=== PATIENT | female | born 1935 | race Caucasian/White ===

== ENCOUNTER 2017-12-05 09:38 | Outpatient (RCR) | payer MEDICARE, OTHER, SELFPAY ==
--- NOTE | 2017-12-05 11:47 | PT.OTN ---
Current Diagnoses Pain in right hip (12/05/17) Transition note: On November 27, 2017 our therapy services consisting of Speech, Occupational, and Physical Therapy transitioned from the [employer] electronic documentation system to a new [employer] electronic documentation system.?? All documentation prior to November 27 can be found under [employer] saved data. From November 27 forward all medical record documentation will be in [employer] 6.1.
--- NOTE | 2017-12-05 15:19 | PT.OTN ---
Current Diagnoses Pain in right hip (12/05/17) Physical Therapy Treatment Note PT-OP-A Visit Information Start: 12/05/17 07:28 Freq: Status: Active Protocol: Document 12/05/17 15:03 [facility] (Rec: 12/05/17 15:19 [facility] [email or web address]) Out-Patient Physical Therapy Visit Information Visit Information Visit Type Treatment Note Visit Start Time 10:30 Visit Stop Time 11:15 Total Visit Minutes 45 Visit Number 5 Number of ROOM SERVICE SUPERVISOR Visits 0 PT-OP-C Subjective Start: 12/05/17 07:28 Freq: Status: Active Protocol: Document 12/05/17 15:03 [facility] (Rec: 12/05/17 15:19 [facility] [email or web address]) OP-PT Subjective Patient Comments Patient Comments Pt reports she has walked on uneven surfaces with her family without issue. Reports she did notice pain when she was done driving 45 min yesterday when she had to switch between gas & brake often. Reports occasional pain with SLR & figure 4 stretch. Has been doing yoga and swimming. PT-OP-M Strength Start: 12/05/17 07:28 Freq: Status: Active Protocol: Document 12/05/17 15:03 [facility] (Rec: 12/05/17 15:19 [facility] [email or web address]) Hip Strength Hip Manual Muscle Testing Right Flexion (L2) 4 Good Extension (S1) 4+ Good+ Abduction 5 Normal Adduction 4 Good External Rotation 5 Normal Internal Rotation 5 Normal Comments pain with add & flex Left Flexion (L2) 5 Normal Extension (S1) 4+ Good+ Abduction 5 Normal Adduction 5 Normal External Rotation 5 Normal Internal Rotation 5 Normal PT-OP-Q Treatments Start: 12/05/17 07:28 Freq: Status: Active Protocol: Document 12/05/17 15:03 [facility] (Rec: 12/05/17 15:19 [facility] [email or web address]) Therapeutic Exercises Supine Exercises 2 Supine Exercise Name SLR w/core focus Side right 1 Supine Exercise Name figure 4 Side right Sidelying Exercises 1 Sidelying Exercise Name adduction Side right Sitting Exercises 1 Sitting Exercise Name flex w/AP glide of femur Side right Manual Therapy Treatment Soft Tissue Mobilization 1 Body Location iliacus Mobilization Type Sustained Pressure Intensity/Depth Moderate Body Position Supine Joint Mobilizations 3 Joint innominate Direction ER R Grade III Body Position Prone 2 Joint sacrum Direction caudal & PA Grade III Body Position Prone 1 Joint hip Direction hip on axis ER & IR R Grade III Body Position Prone Comments w/neuro re edu for gained range Self-Care/Home Management Treatment Education Other Education Review of HEP PT-OP-T Assessment and Plan Start: 12/05/17 07:28 Freq: Status: Active Protocol: Document 12/05/17 15:03 [facility] (Rec: 12/05/17 15:19 [facility] [email or web address]) Physical Therapy Assessment Rehab Potential Rehabilitation Potential Good Impairments Impairments Functional Activities Pain ROM Strength Goals Four Impairment LE STrngth Correction Goal (LTG) 5/5 LTG Duration 01/06/18-improving Three Impairment LEFS Facility Maintenance Technician Goal (LTG) 65/80 LTG Duration 01/06/18 Two Impairment flexibility Short Term Goal (STG) WNL STG Duration 12/21/17-improved- dec flexibility of IR One Impairment MM tenderness Correction Goal (LTG) no tenderness LTG Duration 12/28/17-improving pt had mild tenderness Assessment Summary Assessment pt has cont weakness of hip flexors & adductors w/pain. Pt had improved ROM & strength after manual performed with dec pain. Pt's gait pattern is normalized at this time. Physical Therapy Plan Frequency and Duration Frequency of Treatment Every Other Week Duration of Treatment 6 weeks Plan of Care Start Date 12/05/17 Plan of Care End Date 01/16/18 Next Visit Focus/Plan Next Visit Plan Advance ER ROM & add & flex strength
--- NOTE | 2017-12-05 15:20 | PT.OPPOC ---
Current Diagnoses Pain in right hip (12/05/17) Provider Visit Care Team Role Provider Type Jose Luis Landis MD Attending Provider Physician Family Provider Primary Care Provider Specialty: Family Practice Address: [address] [place] [address], [phone] Email: [email or web address] Plan Of Care PT-OP-T Assessment and Plan Start: 12/05/17 07:28 Freq: Status: Active Protocol: Document 12/05/17 15:03 [facility] (Rec: 12/05/17 15:19 [facility] [id number]) Physical Therapy Assessment Rehab Potential Rehabilitation Potential Good Impairments Impairments Functional Activities Pain ROM Strength Goals Four Impairment LE STrngth Mcfp Goal (LTG) 5/5 LTG Duration 01/06/18-improving Three Impairment LEFS Card Maker Goal (LTG) 65/80 LTG Duration 01/06/18 Two Impairment flexibility Short Term Goal (STG) WNL STG Duration 12/21/17-improved- dec flexibility of IR One Impairment MM tenderness Mcfp Goal (LTG) no tenderness LTG Duration 12/28/17-improving pt had mild tenderness Assessment Summary Assessment pt has cont weakness of hip flexors & adductors w/pain. Pt had improved ROM & strength after manual performed with dec pain. Pt's gait pattern is normalized at this time. Physical Therapy Plan Frequency and Duration Frequency of Treatment Every Other Week Duration of Treatment 6 weeks Plan of Care Start Date 12/05/17 Plan of Care End Date 01/16/18 Next Visit Focus/Plan Next Visit Plan Advance ER ROM & add & flex strength Plan of Care Dates Plan of Care Start Date 12/05/17 Plan of Care End Date 01/16/18 Please Sign and Return: I have reviewed this Plan of Care and certify that the skilled therapy services above are required to meet the patient???s needs. Physician Signature Date Printed Name and Credentials
--- NOTE | 2018-02-15 08:36 | PT.OPDS ---
Current Diagnoses Pain in right hip (12/05/17) Provider Visit Care Team Role Provider Type Jose Luis Landis MD Attending Provider Physician Family Provider Primary Care Provider Specialty: Family Practice Address: [address] [place] [address], [facility] Email: Visit Number Visit Number 5 Discharge Summary PT-OP-C Subjective Start: 12/05/17 07:28 Freq: Status: Active Protocol: Document 12/05/17 15:03 [facility] (Rec: 12/05/17 15:19 [facility] [email or web address]) OP-PT Subjective Patient Comments Patient Comments Pt reports she has walked on uneven surfaces with her family without issue. Reports she did notice pain when she was done driving 45 min yesterday when she had to switch between gas & brake often. Reports occasional pain with SLR & figure 4 stretch. Has been doing yoga and swimming. PT-OP-M Strength Start: 12/05/17 07:28 Freq: Status: Active Protocol: Document 12/05/17 15:03 [facility] (Rec: 12/05/17 15:19 [facility] [email or web address]) Hip Strength Hip Manual Muscle Testing Right Flexion (L2) 4 Good Extension (S1) 4+ Good+ Abduction 5 Normal Adduction 4 Good External Rotation 5 Normal Internal Rotation 5 Normal Comments pain with add & flex Left Flexion (L2) 5 Normal Extension (S1) 4+ Good+ Abduction 5 Normal Adduction 5 Normal External Rotation 5 Normal Internal Rotation 5 Normal PT-OP-T Assessment and Plan Start: 12/05/17 07:28 Freq: Status: Active Protocol: Document 02/15/18 08:35 [facility] (Rec: 02/15/18 08:36 [facility] [email or web address]) Physical Therapy Assessment Goals Four Impairment LE STrngth Mcc Goal (LTG) 5/5 LTG Duration 01/06/18-improving Assessment Summary Assessment Pt cancelled further appointments as she was instructed to if she cont to feel better. She has been returning to her normal activities and recovering well from her injury. Physical Therapy Plan Discharge Physical Therapy Discharge Reasons Goals Met Discharge Comments Pt is cont to advance with strength with HEP.
== END 2018-05-09 09:22 ==
LOC: PHYS 09:38
PROVIDERS: Family Provider Family Medicine; PCP Family Medicine; Visit Provider Family Medicine
DX: M25.551 Pain in right hip (principal)
CPT/HCPCS: 97110; 97140

== ENCOUNTER → 2018-06-10 14:01 | Outpatient (CLI) | payer MEDICARE, OTHER, SELFPAY | PROVIDERS: Family Provider Family Medicine; PCP Family Medicine; Visit Provider Family Medicine | DX: L98.9 Disorder of the skin and subcutaneous tissue, unspecified (principal); S81.801A Unspecified open wound, right lower leg, initial encounter | CPT/HCPCS: 99203; 99213 ==

== ENCOUNTER → 2018-07-05 13:41 | Outpatient (CLI) | payer MEDICARE, OTHER, SELFPAY | PROVIDERS: Family Provider Family Medicine; PCP Family Medicine; Visit Provider Family Medicine | DX: S81.801A Unspecified open wound, right lower leg, initial encounter (principal); T81.31XA Disruption of external operation (surgical) wound, not elsewhere classified, initial encounter | CPT/HCPCS: 11042; 99212 ==

== ENCOUNTER 2018-07-11 15:50 | Emergency (ER) | payer MEDICARE, OTHER, SELFPAY ==
[2018-07-11 15:56] VITALS: BP 191/111; PULSE 168; RESP 16; TEMP 35.9; O2SAT 97; BMI 19.3
--- NOTE | 2018-07-11 16:17 | ED.ARRPALP ---
HPI - Arrhythmia/Palpitations General Chief Complaint: Arrhythmia/Palpitations Stated Complaint: RAPID HEART RATE Time Seen by Provider: 07/11/18 16:02 Source: patient Mode of arrival: ambulatory Limitations: no limitations History of Present Illness complaint: rapid heart beat and heart racing Onset (ago): hour(s) Duration: constant Severity: moderate Context: occurred during rest Arrhythmia history: other (possible a. fib) Associated symptoms: denies other symptoms Related Data Home Medications Medication Instructions Recorded Confirmed multivitamin 1 tab PO DAILY #0 06/25/12 07/11/18 enalapril maleate 10 mg PO DAILY 07/11/18 07/11/18 Previous Rx's Medication Instructions Recorded metoprolol tartrate 12.5 mg PO BID #60 tab 07/11/18 Allergies Allergy/AdvReac Type Severity Reaction Status Date / Time No Known Drug Allergies Allergy Verified 07/11/18 15:56 Review of Systems Review of Systems All systems reviewed & are unremarkable except as noted in HPI and below Constitutional Denies chills, Denies fever(s), Denies lethargy and Denies weakness Eyes Denies change in vision, Denies eye discharge, Denies irritation and Denies loss of vision ENT Ears, Nose, Mouth, and Throat: Denies change in voice, Denies neck pain and Denies sore throat Cardiovascular Denies chest pain, Denies irregular heart rhythm, Denies lightheadedness, Reports palpitations, Denies dyspnea, Denies dyspnea on exertion and Denies orthopnea Respiratory Denies cough, Denies dyspnea, Denies dyspnea on exertion and Denies wheezing Gastrointestinal Gastrointestinal: Denies abdominal pain, Denies change in bowel habits, Denies diarrhea, Denies nausea and Denies vomiting Genitourinary Denies hematuria, Denies flank pain, Denies urinary incontinence and Denies urinary urgency Musculoskeletal Denies neck pain Integumentary/Breasts Denies pruritus, Denies erythema, Denies rash and Denies wounds Neurologic Denies confusion, Denies loss of vision and Denies weakness Psychiatric Denies anxiety, Denies confusion, Denies depression, Denies homicidal ideation and Denies suicidal ideation Endocrine Reports palpitations Hematologic/Lymphatic Denies easy bruising Allergic/Immunologic Denies wheezing [facility] Medical History Cataract (Chronic) Hearing loss (Chronic) Hypertension (Chronic 1988) Chicken pox (Resolved) Measles (Resolved) Mumps (Resolved) Surgical History No history of previous surgery (Resolved 08/2014) Family History Child Age: 54 Hypertension Sister Age: 79 Hypertension Cancer, Onset Age: 80 Father Lung disease Heart disease Mother Atrial fibrillation Social History marital status: number of children: 2 household members: none lives independently: Yes caregiver/support person: No housing: house pets and animals: No education level: college occupational status: previously employed special payal needs: No leisure activities: sports, exercise, music and reading seatbelt use: always helmet use: Yes water heater temp set < 120 deg: Yes working smoke detector in home: Yes fire extinguisher in home: No carbon monox detector in home: No firearms in home: Yes (unloaded but not locked up) firearms unloaded and locked: No do you feel safe at home: Yes Smoking Status: Never smoker second hand exposure: No alcohol intake: current substance use type: does not use Type(s) of exercise: walking, regular exercise and yoga frequency: daily duration: 30-45 minutes/day Exam Initial Vital Signs Initial Vital Signs: Vital Signs Temperature 96.6 F L 07/11/18 15:56 Pulse Rate 168 H 07/11/18 15:56 Respiratory Rate 16 07/11/18 15:56 Blood Pressure 191/111 H 07/11/18 15:56 Pulse Oximetry 97 07/11/18 15:56 Const General: cooperative and well developed Nutritional Appearance: well nourished Orientation: alert, awake, oriented x3 and not confused [facility] Head: normocephalic and atraumatic Ears: external ears normal and TM's normal bilaterally Nose: external nose normal and No nasal discharge Face and sinus: sinuses nontender, face symmetric, no sinus tenderness and No dry mucous membranes Mouth: oral mucosae normal and moist mucous membranes Teeth and gingiva: dentition normal Throat: tonsils normal and uvula midline Eyes General: appearance normal, both eyes and all related structures Eyelids: eyelids normal Conjunctivae: conjunctivae normal Sclera: sclerae normal Pupils: PERRL EOM: EOM intact bilaterally Neck Neck: normal visual inspection, trachea midline, No lymphadenopathy, No midline deformity and No JVD Lymphatic: No lymphedema Chest Chest: normal inspection of the chest Resp Effort & Inspection: normal respiratory effort, able to speak in complete sentences, no respiratory distress and no use of accessory muscles Auscultation: clear to auscultation bilaterally, no rales, no rhonchi and no wheezes Cardio Rate: tachycardic Rhythm: regular rhythm Heart Sounds: no click, no gallops, no murmurs and no rubs Pulses: normal peripheral pulses GI Inspection: non-distended Palpation: soft, no hepatosplenomegaly, No guarding, No pulsatile mass and No tender Auscultation: normal bowel sounds Back/Spine/Pelvis Back: No CVA tenderness Cervical Spine: cervical ROM normal and No pain with cervical ROM Thoracic/Lumbar Spine: thoracic and lumbar spine normal to inspection Skin General: no rashes or lesions noted, No jaundice and No petechiae Neuro General: alert, oriented x3, gait normal and no focal motor deficits Speech: speech normal Extrem General: full ROM, no clubbing, cyanosis or edema, no pedal edema and no calf tenderness Psych Appearance: well kempt Mental Status: mental status grossly normal Attitude: cooperative Thought Content: normal and suicidality Judgment: judgment good Course Course Narrative: Patient was evaluated by myself upon arrival in the emergency department, due to her significantly elevated heart rate in the 170s. Due to the rate, as well as the very regular rhythm, I was concerned about SVT. The patient was treated with adenosine for this, but did not respond, other than to develop more irregularity in her rhythm while continuing to have narrow complexes. I did give the patient diltiazem 20 mg IV, which brought the patient's heart rate down mildly, into the 150s. Heart rate did begin to climb again, and so patient was given IV Lopressor. This did bring the patient's heart rate into the 140s, ultimately, until patient spontaneously converted to a normal sinus rhythm. Patient was given an oral dose of metoprolol to help prevent further episodes from occurring. I did discuss with the patient that it is very important that she follow up with Cardiology, as she does not have a formal diagnosis of any sort of dysrhythmia that she knows of. Her queen's counsel or her primary care physician will need to determine what is the best management approach to the atrial fibrillation. Patient is agreeable to this plan. We have discussed the usual indications for return. Orders Ordered: Discontinued Medications Adenosine (Adenocard) 6 mg IV NOW ONE Stop: 07/11/18 16:32 Last Admin: 07/11/18 16:32 Dose: 6 mg Diltiazem HCl (Cardizem) 20 mg IV NOW ONE Stop: 07/11/18 16:14 Last Admin: 07/11/18 16:22 Dose: 20 mg Metoprolol Tartrate (Lopressor) 5 mg IV Q5M KRISTEN Stop: 07/11/18 16:56 Last Admin: 07/11/18 16:57 Dose: Admin: 07/11/18 16:52 Dose: Admin: 07/11/18 16:41 Dose: 5 mg Metoprolol Tartrate (Lopressor) 12.5 mg PO NOW ONE Stop: 07/11/18 17:21 Last Admin: 07/11/18 17:26 Dose: 12.5 mg Vital Signs - 8 hr 07/11/18 15:56 Temperature 96.6 F L Pulse Rate 168 H Respiratory Rate 16 Blood Pressure 191/111 H Pulse Oximetry 97 MDM - Arrhythmia/Palpitations Medical Records Attestation: I reviewed the patient's medical records. Lab Data Attestation: I reviewed the patient's lab results. Result diagrams: 07/11/18 16:10 07/11/18 16:10 Lab Results 07/11/18 07/11/18 Range/Units 16:10 16:10 WBC 7.4 (4.5-11.0) X10^3/uL RBC 4.65 (4.0-5.2) X10^6/uL Hgb 14.1 (12.0-16.0) g/dL Hct 42.6 (36-46) % MCV 91.7 (80-100) fL MCH 30.3 (26-34) PG MCHC 33.1 (30-36) % RDW 13.3 (11.6-14.8) % Plt Count 269 (150-400) X10^3/uL Neut % (Auto) 80.1 H (50-75) % Lymph % (Auto) 11.5 L (25-40) % Dewitt % (Auto) 7.1 (3-14) % Eos % (Auto) 0.9 L (2-4) % Baso % (Auto) 0.4 (0-2) % Neut # (Auto) 5900 (4228-3735) /uL Sodium 138 (137-145) mmol/L Potassium 4.2 (3.4-5.1) mmol/L Chloride 101 (98-107) mmol/L Carbon Dioxide 24 (22-32) mmol/L BUN 21 H (7-17) mg/dL Creatinine 0.90 (0.52-1.04) mg/dL Estimated GFR 59.9 L (>60) mL/min BUN/Creatinine Ratio 23.3 H (6-22) Glucose 106 (80-110) mg/dL Calcium 9.8 (8.4-10.2) mg/dL Total Bilirubin 0.4 (0.2-1.3) mg/dL AST 33 (14-36) IU/L ALT 28 (9-52) IU/L Alkaline Phosphatase 61 (38-126) U/L Total Protein 7.3 (6.3-8.2) g/dL Albumin 4.6 (3.5-5.0) g/dL Globulin 2.7 (1.7-4.1) g/dL Albumin/Globulin Ratio 1.7 (1.0-2.8) ECG Data Attestation: I personally reviewed and interpreted this ECG as follows: Interpretation: Twelve lead EKG performed July 11, 2018 at 3:56 p.m., as follows: Regular ventricular rhythm with a rate of 167 beats per minute P waves and [place] interval undetectable QRS duration 136 milliseconds QTC interval [address] T wave changes No axis deviation In summary: Largely regular rhythm, uncertain type; abnormal EKG as interpreted by ED MD. Repeat 12 lead EKG performed July 11, 2018 at 4:46 p.m., as follows: Irregular ventricular rhythm with a rate of 66 beats per minute [place] interval undetectable QRS duration 81 millisecond QTC interval [address] T wave changes In summary: Sinus rhythm with second-degree AV block, Mobitz type 2; no STEMI; abnormal EKG as interpreted by ED MD; rate and rhythm improved from prior EKG earlier in the visit. Critical Care Time Critical Care Time: Yes Total Critical Care Time: 40 Attestation: Patient had high probability of imminent life-threatening deterioration, due to extreme tachycardia with impending circulatory failure. Critical care time is independent of separately billable procedures. Critical care time includes history taking from patient, examination of the patient, ordering and reviewing of diagnostic testing, discussion of results with patient, performing critical interventions, assessing results interventions, assessing cardiac output measures. Discharge Plan Departure Patient Disposition: Home Clinical Impression: Atrial fibrillation with rapid ventricular response Discharge Date/Time: 07/11/18 17:52 Interventions: ED Discharge Assessment Last Done: 07/11/18 17:47 Instructions: DI for Atrial Fibrillation Activity Restrictions/Additional Instructions: Your labs look good. You were found to be in an irregular heart rhythm called atrial fibrillation today. Occasionally, this can cause your heart to beat too fast, which is what happened today. For now, your heart has gone back into a normal rhythm, but because the abnormal heart rhythm happened, it is important that you follow up with both your primary doctor and a queen's counsel. We will start you on a low dose of the medication we gave you today to get your heart back into normal rate and rhythm. You should take this every day at home until you see your doctor. If you experience any chest pain, shortness of breath, lightheadedness, or palpitations, you should return to the emergency department immediately. Prescriptions: New metoprolol tartrate 25 mg tablet 12.5 mg PO BID Qty: 60 RF: 0 No Action multivitamin Tablet 1 tab PO DAILY Qty: 0 RF: 0 enalapril maleate 10 mg tablet 10 mg PO DAILY RF: 0 Referrals: [facility] Cardiology [Provider Group] (Please call as soon as possible to follow up for your atrial fibrillation.) Sarah Patterson MD [Primary Care Provider] -
[2018-07-11 16:22] VITALS: BP 198/118; PULSE 166
[2018-07-11] MEDS: dilTIAZem 5 MG/ML SDV 20 MG IV (16:22)
[2018-07-11] MEDS: ADENOSINE 6 MG/2 ML VIAL IV (16:32)
[2018-07-11 16:34] LABS: Alanine Aminotransferase 28 IU/L (9-52); Albumin 4.6 g/dL (3.5-5.0); Albumin Globulin Ratio 1.7 (1.0-2.8); Alkaline Phosphatase 61 U/L (38-126); Aspartate Aminotransferase 33 IU/L (14-36); BUN Creatinine Ratio 23.3 (6-22); Bilirubin Total 0.4 mg/dL (0.2-1.3); Blood Urea Nitrogen 21 mg/dL (7-17); Calcium 9.8 mg/dL (8.4-10.2); Carbon Dioxide 24 mmol/L (22-32); Chloride 101 mmol/L (98-107); Estimated Glomerular Filt Rate 59.9 mL/min (>60); Globulin 2.7 g/dL (1.7-4.1); Glucose 106 mg/dL (80-110); HEMOLYSIS < 15 (0-50); Potassium 4.2 mmol/L (3.4-5.1); Sodium 138 mmol/L (137-145); Total Protein 7.3 g/dL (6.3-8.2)
[2018-07-11 16:38] LABS: Add Manual Diff / Slide Review NO; Basophils Percent Auto 0.4 % (0-2); Eosinophils Percent Auto 0.9 % (2-4); Hematocrit 42.6 % (36-46); Hemoglobin 14.1 g/dL (12.0-16.0); Lymphocytes Percent Auto 11.5 % (25-40); Mean Corpuscular HGB Conc 33.1 % (30-36); Mean Corpuscular Hemoglobin 30.3 PG (26-34); Mean Corpuscular Volume 91.7 fL (80-100); Monocytes Percent Auto 7.1 % (3-14); Neutrophils Absolute Auto 5900 /uL (1500-7000); Neutrophils Percent Auto 80.1 % (50-75); Platelet Count 269 X10^3/uL (150-400); Red Blood Cell Count 4.65 X10^6/uL (4.0-5.2); Red Cell Distribution Width 13.3 % (11.6-14.8); White Blood Cell Count 7.4 X10^3/uL (4.5-11.0)
[2018-07-11] MEDS: METOPROLOL TARTRATE 5 MG/5 ML INJ IV (16:41)
--- NOTE | 2018-07-11 16:52 | ED_ITS ---
HPI - Arrhythmia/Palpitations General Chief Complaint: Arrhythmia/Palpitations Stated Complaint: RAPID HEART RATE Time Seen by Provider: 07/11/18 16:02 Source: patient Mode of arrival: ambulatory Limitations: no limitations History of Present Illness complaint: rapid heart beat and heart racing Onset (ago): hour(s) Duration: constant Severity: moderate Context: occurred during rest Arrhythmia history: other (possible a. fib) Associated symptoms: denies other symptoms Related Data Home Medications Medication Instructions Recorded Confirmed multivitamin 1 tab PO DAILY #0 06/25/12 07/11/18 enalapril maleate 10 mg PO DAILY 07/11/18 07/11/18 Previous Rx's Medication Instructions Recorded metoprolol tartrate 12.5 mg PO BID #60 tab 07/11/18 Allergies Allergy/AdvReac Type Severity Reaction Status Date / Time No Known Drug Allergies Allergy Verified 07/11/18 15:56 Review of Systems Review of Systems All systems reviewed & are unremarkable except as noted in HPI and below Constitutional Denies chills, Denies fever(s), Denies lethargy and Denies weakness Eyes Denies change in vision, Denies eye discharge, Denies irritation and Denies loss of vision ENT Ears, Nose, Mouth, and Throat: Denies change in voice, Denies neck pain and Denies sore throat Cardiovascular Denies chest pain, Denies irregular heart rhythm, Denies lightheadedness, Reports palpitations, Denies dyspnea, Denies dyspnea on exertion and Denies orthopnea Respiratory Denies cough, Denies dyspnea, Denies dyspnea on exertion and Denies wheezing Gastrointestinal Gastrointestinal: Denies abdominal pain, Denies change in bowel habits, Denies diarrhea, Denies nausea and Denies vomiting Genitourinary Denies hematuria, Denies flank pain, Denies urinary incontinence and Denies urinary urgency Musculoskeletal Denies neck pain Integumentary/Breasts Denies pruritus, Denies erythema, Denies rash and Denies wounds Neurologic Denies confusion, Denies loss of vision and Denies weakness Psychiatric Denies anxiety, Denies confusion, Denies depression, Denies homicidal ideation and Denies suicidal ideation Endocrine Reports palpitations Hematologic/Lymphatic Denies easy bruising Allergic/Immunologic Denies wheezing [facility] Medical History Cataract (Chronic) Hearing loss (Chronic) Hypertension (Chronic 1988) Chicken pox (Resolved) Measles (Resolved) Mumps (Resolved) Surgical History No history of previous surgery (Resolved 08/2014) Family History Child Age: 54 Hypertension Sister Age: 79 Hypertension Cancer, Onset Age: 80 Father Lung disease Heart disease Mother Atrial fibrillation Social History marital status: number of children: 2 household members: none lives independently: Yes caregiver/support person: No housing: house pets and animals: No education level: college occupational status: previously employed special payal needs: No leisure activities: sports, exercise, music and reading seatbelt use: always helmet use: Yes water heater temp set < 120 deg: Yes working smoke detector in home: Yes fire extinguisher in home: No carbon monox detector in home: No firearms in home: Yes (unloaded but not locked up) firearms unloaded and locked : No do you feel safe at home: Yes Smoking Status: Never smoker second hand exposure: No alcohol intake: current substance use type: does not use Type(s) of exercise: walking, regular exercise and yoga frequency: daily duration: 30-45 minutes/day Exam Initial Vital Signs Initial Vital Signs: Vital Signs Temperature 96.6 F L 07/11/18 15:56 Pulse Rate 168 H 07/11/18 15:56 Respiratory Rate 16 07/11/18 15:56 Blood Pressure 191/111 H 07/11/18 15:56 Pulse Oximetry 97 07/11/18 15:56 Const General: cooperative and well developed Nutritional Appearance: well nourished Orientation: alert, awake, oriented x3 and not confused [facility] Head: normocephalic and atraumatic Ears: external ears normal and TM's normal bilaterally Nose: external nose normal and No nasal discharge Face and sinus: sinuses nontender, face symmetric, no sinus tenderness and No dry mucous membranes Mouth: oral mucosae normal and moist mucous membranes Teeth and gingiva: dentition normal Throat: tonsils normal and uvula midline Eyes General: appearance normal, both eyes and all related structures Eyelids: eyelids normal Conjunctivae: conjunctivae normal Sclera: sclerae normal Pupils: PERRL EOM: EOM intact bilaterally Neck Neck: normal visual inspection, trachea midline, No lymphadenopathy, No midline deformity and No JVD Lymphatic: No lymphedema Chest Chest: normal inspection of the chest Resp Effort & Inspection: normal respiratory effort, able to speak in complete sentences, no respiratory distress and no use of accessory muscles Auscultation: clear to auscultation bilaterally, no rales, no rhonchi and no wheezes Cardio Rate: tachycardic Rhythm: regular rhythm Heart Sounds: no click, no gallops, no murmurs and no rubs Pulses: normal peripheral pulses GI Inspection: non-distended Palpation: soft, no hepatosplenomegaly, No guarding, No pulsatile mass and No tender Auscultation: normal bowel sounds Back/Spine/Pelvis Back: No CVA tenderness Cervical Spine: cervical ROM normal and No pain with cervical ROM Thoracic/Lumbar Spine: thoracic and lumbar spine normal to inspection Skin General: no rashes or lesions noted, No jaundice and No petechiae Neuro General: alert, oriented x3, gait normal and no focal motor deficits Speech: speech normal Extrem General: full ROM, no clubbing, cyanosis or edema, no pedal edema and no calf tenderness Psych Appearance: well kempt Mental Status: mental status grossly normal Attitude: cooperative Thought Content: normal and suicidality Judgment: judgment good Course Course Narrative: Patient was evaluated by myself upon arrival in the emergency department, due to her significantly elevated heart rate in the 170s. Due to the rate, as well as the very regular rhythm, I was concerned about SVT. The patient was treated with adenosine for this, but did not respond, other than to develop more irregularity in her rhythm while continuing to have narrow complexes. I did give the patient diltiazem 20 mg IV, which brought the patient 's heart rate down mildly, into the 150s. Heart rate did begin to climb again, and so patient was given IV Lopressor. This did bring the patient's heart rate into the 140s, ultimately, until patient spontaneously converted to a normal sinus rhythm. Patient was given an oral dose of metoprolol to help prevent further episodes from occurring. I did discuss with the patient that it is very important that she follow up with Cardiology, as she does not have a formal diagnosis of any sort of dysrhythmia that she knows of. Her washer engineer or her primary care physician will need to determine what is the best management approach to the atrial fibrillation. Patient is agreeable to this plan. We have discussed the usual indications for return. Orders Ordered: Discontinued Medications Adenosine (Adenocard) 6 mg IV NOW ONE Stop: 07/11/18 16:32 Last Admin: 07/11/18 16:32 Dose: 6 mg Diltiazem HCl (Cardizem) 20 mg IV NOW ONE Stop: 07/11/18 16:14 Last Admin: 07/11/18 16:22 Dose: 20 mg Metoprolol Tartrate (Lopressor) 5 mg IV Q5M KRISTEN Stop: 07/11/18 16:56 Last Admin: 07/11/18 16:57 Dose: Admin: 07/11/18 16:52 Dose: Admin: 07/11/18 16:41 Dose: 5 mg Metoprolol Tartrate (Lopressor) 12.5 mg PO NOW ONE Stop: 07/11/18 17:21 Last Admin: 07/11/18 17:26 Dose: 12.5 mg Vital Signs - 8 hr 07/11/18 15:56 Temperature 96.6 F L Pulse Rate 168 H Respiratory Rate 16 Blood Pressure 191/111 H Pulse Oximetry 97 MDM - Arrhythmia/Palpitations Medical Records Attestation: I reviewed the patient's medical records. Lab Data Attestation: I reviewed the patient's lab results. Result diagrams: 07/11/18 16:10 07/11/18 16:10 Lab Results 07/11/18 07/11/18 Range/Units 16:10 16:10 WBC 7.4 (4.5-11.0) X10^3/uL RBC 4.65 (4.0-5.2) X10^6/uL Hgb 14.1 (12.0-16.0) g/dL Hct 42.6 (36-46) % MCV 91.7 (80-100) fL MCH 30.3 (26-34) PG MCHC 33.1 (30-36) % RDW 13.3 (11.6-14.8) % Plt Count 269 (150-400) X10^3/uL Neut % (Auto) 80.1 H (50-75) % Lymph % (Auto) 11.5 L (25-40) % [place] % (Auto) 7.1 (3-14) % Eos % (Auto) 0.9 L (2-4) % Baso % (Auto) 0.4 (0-2) % Neut # (Auto) 5900 (7297-9033) /uL Sodium 138 (137-145) mmol/L Potassium 4.2 (3.4-5.1) mmol/L Chloride 101 (98-107) mmol/L Carbon Dioxide 24 (22-32) mmol/L BUN 21 H (7-17) mg/dL Creatinine 0.90 (0.52-1.04) mg/dL Estimated GFR 59.9 L (>60) mL/min BUN/Creatinine Ratio 23.3 H (6-22) Glucose 106 (80-110) mg/dL Calcium 9.8 (8.4-10.2) mg/dL Total Bilirubin 0.4 (0.2-1.3) mg/dL AST 33 (14-36) IU/L ALT 28 (9-52) IU/L Alkaline Phosphatase 61 (38-126) U/L Total Protein 7.3 (6.3-8.2) g/dL Albumin 4.6 (3.5-5.0) g/dL Globulin 2.7 (1.7-4.1) g/dL Albumin/Globulin Ratio 1.7 (1.0-2.8) ECG Data Attestation: I personally reviewed and interpreted this ECG as follows: Interpretation: Twelve lead EKG performed July 11, 2018 at 3:56 p.m., as follows: Regular ventricular rhythm with a rate of 167 beats per minute P waves and NJ interval undetectable QRS duration 136 milliseconds QTC interval [address] T wave changes No axis deviation In summary: Largely regular rhythm, uncertain type; abnormal EKG as interpreted by ED MD. Repeat 12 lead EKG performed July 11, 2018 at 4:46 p.m., as follows: Irregular ventricular rhythm with a rate of 66 beats per minute NJ interval undetectable QRS duration 81 millisecond QTC interval [address] T wave changes In summary: Sinus rhythm with second-degree AV block, Mobitz type 2; no STEMI; abnormal EKG as interpreted by ED MD; rate and rhythm improved from prior EKG earlier in the visit. Critical Care Time Critical Care Time: Yes Total Critical Care Time: 40 Attestation: Patient had high probability of imminent life-threatening deterioration, due to extreme tachycardia with impending circulatory failure. Critical care time is independent of separately billable procedures. Critical care time includes history taking from patient, examination of the patient, ordering and reviewing of diagnostic testing, discussion of results with patient , performing critical interventions, assessing results interventions, assessing cardiac output measures. Discharge Plan Departure Patient Disposition: Home Clinical Impression: Atrial fibrillation with rapid ventricular response Discharge Date/Time: 07/11/18 17:52 Interventions: ED Discharge Assessment Last Done: 07/11/18 17:47 Instructions: DI for Atrial Fibrillation Activity Restrictions/Additional Instructions: Your labs look good. You were found to be in an irregular heart rhythm called atrial fibrillation today. Occasionally, this can cause your heart to beat too fast, which is what happened today. For now, your heart has gone back into a normal rhythm, but because the abnormal heart rhythm happened, it is important that you follow up with both your primary doctor and a washer engineer. We will start you on a low dose of the medication we gave you today to get your heart back into normal rate and rhythm. You should take this every day at home until you see your doctor. If you experience any chest pain, shortness of breath, lightheadedness, or palpitations, you should return to the emergency department immediately. Prescriptions: New metoprolol tartrate 25 mg tablet 12.5 mg PO BID Qty: 60 RF: 0 No Action multivitamin Tablet 1 tab PO DAILY Qty: 0 RF: 0 enalapril maleate 10 mg tablet 10 mg PO DAILY RF: 0 Referrals: [facility] [Provider Group] (Please call as soon as possible to follow up for your atrial fibrillation.) Sarah Patterson MD [Primary Care Provider] -
[2018-07-11 16:55] VITALS: BP 146/71; PULSE 72; RESP 20; O2SAT 97
[2018-07-11] MEDS: METOPROLOL 12.5 MG TABLET PO (17:26)
[2018-07-11 17:47] VITALS: BP 159/71; PULSE 74; RESP 20; O2SAT 98
== END 2018-07-11 17:52 | disposition home or self-care (01) ==
PROVIDERS: Emergency Provider Emergency Medicine; Family Provider Family Medicine; PCP Family Medicine
DX: I48.91 Unspecified atrial fibrillation (principal); S81.801A Unspecified open wound, right lower leg, initial encounter; R00.0 Tachycardia, unspecified
CPT/HCPCS: 11042; 80053; 85025; 93005; 93010; 93041; 96374; 96375; 99213; 99214; 99283; 99284; J0153

== ENCOUNTER → 2018-07-18 09:00 | Outpatient (CLI) | payer MEDICARE, OTHER, SELFPAY | PROVIDERS: Family Provider Family Medicine; PCP Family Medicine; Visit Provider Family Medicine | DX: S81.801A Unspecified open wound, right lower leg, initial encounter (principal); I48.91 Unspecified atrial fibrillation | CPT/HCPCS: 11042 ==

== ENCOUNTER → 2018-07-25 13:24 | Outpatient (CLI) | payer MEDICARE, OTHER, SELFPAY | PROVIDERS: Family Provider Family Medicine; PCP Family Medicine; Visit Provider Family Medicine | DX: S81.801A Unspecified open wound, right lower leg, initial encounter (principal); I48.91 Unspecified atrial fibrillation | CPT/HCPCS: 11042 ==

== ENCOUNTER → 2018-08-02 13:02 | Outpatient (CLI) | payer MEDICARE, OTHER, SELFPAY | PROVIDERS: Family Provider Family Medicine; PCP Family Medicine; Visit Provider Family Medicine | DX: S81.801A Unspecified open wound, right lower leg, initial encounter (principal) | CPT/HCPCS: 11042 ==

== ENCOUNTER → 2018-08-09 10:44 | Outpatient (CLI) | payer MEDICARE, OTHER, SELFPAY | PROVIDERS: Family Provider Family Medicine; PCP Family Medicine; Visit Provider Family Medicine | DX: S81.801D Unspecified open wound, right lower leg, subsequent encounter (principal) | CPT/HCPCS: 99213 ==

== ENCOUNTER → 2018-08-16 13:17 | Outpatient (CLI) | payer MEDICARE, OTHER, SELFPAY | PROVIDERS: Family Provider Family Medicine; PCP Family Medicine; Visit Provider Family Medicine | DX: S81.801A Unspecified open wound, right lower leg, initial encounter (principal) | CPT/HCPCS: 97597 ==

== ENCOUNTER → 2018-08-23 13:51 | Outpatient (CLI) | payer MEDICARE, OTHER, SELFPAY | PROVIDERS: Family Provider Family Medicine; PCP Family Medicine; Visit Provider Family Medicine | DX: S81.801A Unspecified open wound, right lower leg, initial encounter (principal) | CPT/HCPCS: 97597 ==

== ENCOUNTER → 2018-08-30 13:25 | Outpatient (CLI) | payer MEDICARE, OTHER, SELFPAY | PROVIDERS: Family Provider Family Medicine; PCP Family Medicine; Visit Provider Family Medicine | DX: S81.801A Unspecified open wound, right lower leg, initial encounter (principal) | CPT/HCPCS: 97597 ==

== ENCOUNTER → 2018-09-13 13:24 | Outpatient (CLI) | payer MEDICARE, OTHER, SELFPAY | PROVIDERS: Family Provider Family Medicine; PCP Family Medicine; Visit Provider Family Medicine | DX: Z48.817 Encounter for surgical aftercare following surgery on the skin and subcutaneous tissue (principal) | CPT/HCPCS: 99212; 99213 ==

== ENCOUNTER → 2018-09-26 08:00 | Outpatient (CLI) | payer MEDICARE, OTHER, SELFPAY ==
[2018-09-26 10:20] LABS: Cholesterol 206 mg/dL (140-199); HDL Cholesterol 88 mg/dL (40-60); LDL Cholesterol Calculated 107 mg/dL (<100); Triglycerides 57 mg/dL (35-150)
== END ==
PROVIDERS: PCP Family Medicine; Visit Provider Internal Medicine Cardiovascular Disease
DX: I10 Essential (primary) hypertension (principal)
CPT/HCPCS: 36415; 80061

== ENCOUNTER → 2018-12-05 11:40 | Outpatient (CLI) | payer MEDICARE, OTHER, SELFPAY ==
[2018-12-05 11:45] LABS: Bacteria Urine None Seen
[2018-12-05 12:09] LABS: Add Manual Diff / Slide Review NO; Basophils Absolute Auto 0 /uL (0-100); Basophils Percent Auto 0.5 % (0-2); Eosinophils Absolute Auto 100 /uL (0-450); Eosinophils Percent Auto 0.7 % (2-4); Hematocrit 42.5 % (36-46); Hemoglobin 14.1 g/dL (12.0-16.0); Lymphocytes Absolute Auto 700 /uL (1100-4500); Lymphocytes Percent Auto 9.3 % (25-40); Mean Corpuscular HGB Conc 33.1 % (30-36); Mean Corpuscular Hemoglobin 30.7 PG (26-34); Mean Corpuscular Volume 92.7 fL (80-100); Monocytes Absolute Auto 500 /uL (0-900); Monocytes Percent Auto 5.7 % (3-14); Neutrophils Absolute Auto 6700 /uL (1500-7000); Neutrophils Percent Auto 83.8 % (50-75); Platelet Count 261 X10^3/uL (150-400); Red Blood Cell Count 4.59 X10^6/uL (4.0-5.2); Red Cell Distribution Width 13.2 % (11.6-14.8)
[2018-12-05 12:11] LABS: Appearance Urine UA CLEAR; Bilirubin Urine UA NEGATIVE (NEGATIVE); Color Urine UA YELLOW; Glucose Urine UA NEGATIVE (Negative); Ketones Urine UA NEGATIVE (NEGATIVE); Leukocyte Esterase Urine UA NEGATIVE (NEGATIVE); Nitrite Urine UA NEGATIVE (Negative); Occult Blood Urine UA NEGATIVE (Negative); Protein Urine UA NEGATIVE (Negative); Urobilinogen Urine UA 0.2 E.U./dL (0.2)
[2018-12-05 12:23] LABS: BUN Creatinine Ratio 22.5 (6-22); Blood Urea Nitrogen 18 mg/dL (7-17); Calcium 9.5 mg/dL (8.4-10.2); Carbon Dioxide 24 mmol/L (22-32); Chloride 98 mmol/L (98-107); Estimated Glomerular Filt Rate > 60.0 mL/min (>60); Glucose 99 mg/dL (80-110); HEMOLYSIS < 15 (0-50); Potassium 4.2 mmol/L (3.4-5.1); Sodium 134 mmol/L (137-145)
[2018-12-05 13:10] LABS: Thyroid Stimulating Hormone 2.61 uIU/mL (0.47-4.68)
[2018-12-05 13:16] LABS: Culture Indicated Urine Cult Not Indicated; RBC Urine 0-1/HPF (0-5/HPF); WBC Urine 0-1/HPF (0-5/HPF)
== END ==
PROVIDERS: PCP Family Medicine; Visit Provider Hospitalist
DX: R53.83 Other fatigue (principal)
CPT/HCPCS: 36415; 80048; 81001; 84443; 85025

== ENCOUNTER → 2020-09-21 10:47 | Outpatient (CLI) | payer MEDICARE, OTHER, SELFPAY ==
[2020-09-21 11:59] LABS: BUN Creatinine Ratio 21.1 (6-22); Blood Urea Nitrogen 16 mg/dL (7-17); Calcium 9.4 mg/dL (8.4-10.2); Carbon Dioxide 29 mmol/L (22-32); Chloride 100 mmol/L (98-107); Estimated Glomerular Filt Rate > 60.0 mL/min (>60); Glucose 98 mg/dL (80-110); HEMOLYSIS < 15 (0-50); Potassium 4.4 mmol/L (3.4-5.1); Sodium 134 mmol/L (137-145)
[2020-09-21 12:21] LABS: Creatinine Urine Random 41.1 mg/dL; Microalbumi Creatinin Ratio Ur 36.4 ug/mg CR (<30); Microalbumin Urine Random 1.5 mg/dL (0-1.6)
== END ==
PROVIDERS: PCP Family Medicine; Referring Provider Family Medicine; Visit Provider Family Medicine
DX: I10 Essential (primary) hypertension (principal)
CPT/HCPCS: 36415; 80048; 82043; 82570

== ENCOUNTER → 2021-05-02 14:18 | Outpatient (CLI) | payer MEDICARE, OTHER, SELFPAY ==
[2021-05-02 14:55] LABS: Appearance Urine UA CLEAR; Bilirubin Urine UA NEGATIVE (NEGATIVE); Color Urine UA YELLOW; Glucose Urine UA NEGATIVE (Negative); Ketones Urine UA NEGATIVE (NEGATIVE); Leukocyte Esterase Urine UA TRACE (NEGATIVE); Nitrite Urine UA NEGATIVE (Negative); Occult Blood Urine UA NEGATIVE (Negative); Protein Urine UA NEGATIVE (Negative); Specific Gravity Urine UA 1.015 (1.000-1.035); Urobilinogen Urine UA 0.2 E.U./dL (0.2)
[2021-05-02 14:56] LABS: Add Manual Diff / Slide Review NO; Basophils Absolute Auto 0 /uL (0-100); Basophils Percent Auto 0.4 % (0-2); Eosinophils Absolute Auto 0 /uL (0-450); Eosinophils Percent Auto 0.8 % (2-4); Hematocrit 40.6 % (36-46); Hemoglobin 13.4 g/dL (12.0-16.0); Lymphocytes Absolute Auto 900 /uL (1100-4500); Lymphocytes Percent Auto 14.6 % (25-40); Mean Corpuscular HGB Conc 33.1 % (30-36); Mean Corpuscular Hemoglobin 30.6 PG (26-34); Mean Corpuscular Volume 92.6 fL (80-100); Monocytes Absolute Auto 500 /uL (0-900); Monocytes Percent Auto 7.6 % (3-14); Neutrophils Absolute Auto 4900 /uL (1500-7000); Neutrophils Percent Auto 76.6 % (50-75); Platelet Count 278 X10^3/uL (150-400); Red Blood Cell Count 4.38 X10^6/uL (4.0-5.2); White Blood Cell Count 6.3 X10^3/uL (4.5-11.0)
[2021-05-02 15:04] LABS: Bacteria Urine Occasional (0-1); Culture Indicated Urine Specimen Cultured; RBC Urine 0-1/HPF (0-5/HPF); WBC Urine 5-10/HPF (0-5/HPF)
[2021-05-02 16:05] LABS: Alanine Aminotransferase 19 IU/L (<35); Albumin 4.5 g/dL (3.5-5.0); Alkaline Phosphatase 54 U/L (38-126); Aspartate Aminotransferase 32 IU/L (14-36); BUN Creatinine Ratio 31.5 (6-22); Bilirubin Total 0.4 mg/dL (0.2-1.3); Blood Urea Nitrogen 23 mg/dL (7-17); Calcium 9.9 mg/dL (8.4-10.2); Carbon Dioxide 29 mmol/L (22-32); Chloride 98 mmol/L (98-107); Estimated Glomerular Filt Rate > 60.0 mL/min (>60); Globulin 2.3 g/dL (1.7-4.1); Glucose 90 mg/dL (80-110); HEMOLYSIS < 15 (0-50); Potassium 4.6 mmol/L (3.4-5.1); Sodium 136 mmol/L (137-145); Total Protein 6.8 g/dL (6.3-8.2)
[2021-05-02 16:35] LABS: Thyroid Stimulating Hormone 2.88 uIU/mL (0.47-4.68)
[2021-05-02 16:54] LABS: Vitamin B12 584 pg/mL (239-931)
== END ==
PROVIDERS: PCP Family Medicine; Referring Provider Family Medicine; Visit Provider Family Medicine
DX: I10 Essential (primary) hypertension (principal); R26.81 Unsteadiness on feet; R42 Dizziness and giddiness; R53.83 Other fatigue; R41.3 Other amnesia
CPT/HCPCS: 36415; 80053; 81001; 82607; 84443; 85025; 87086

== ENCOUNTER → 2021-05-02 14:57 | Outpatient (CLI) | payer MEDICARE, OTHER, SELFPAY ==
--- NOTE | 2021-05-24 08:12 | P.HOLT.S_ITS ---
Shellfish Bed Worker Report Referral & Results Date Patient Seen: 05/02/21 Requesting provider: Sarah Patterson Indication: SVT Duration of monitoring (days): 14 Diary information: There are no patient events to review Data: Minimum heart rate identified was 50 beats per minute at 04:10 on 05/11/2021 Maximum sinus heart rate was 134 beats per minute at 07:32 on 05/16/2021 Maximum overall heart rate was 226 beats per minute at 08:58 on 05/08/2021 during a run of SVT Approximately 4.3% of identified beats were supraventricular ectopic in origin which would classify them as occasional Less than 1% of identified beats were ventricular ectopic in origin which would classify them as rare There were 95 runs of SVT with the fastest run being the 10 beat run noted above at 226 beats per minute and the longest lasting 15.4 seconds at a rate of 137 beats per minute which might suggest more atrial tachycardia than true SVT Impression: 14 day cardiac technologist demonstrating fairly rare fairly brief runs of SVT as above. Also occasional PACs
== END ==
PROVIDERS: PCP Family Medicine; Referring Provider Family Medicine; Visit Provider Family Medicine
DX: I47.1 Supraventricular tachycardia (principal); I10 Essential (primary) hypertension; R26.81 Unsteadiness on feet; R42 Dizziness and giddiness; R53.83 Other fatigue; R41.3 Other amnesia
CPT/HCPCS: 36415; 80053; 81001; 82607; 84443; 85025; 87086; 93246; 93248

== ENCOUNTER 2021-05-05 14:09 | Outpatient (RCR) | payer MEDICARE, OTHER, SELFPAY ==
--- NOTE | 2021-05-05 16:26 | PT.OIE ---
Current Diagnoses Dizziness and giddiness (05/05/21) Past Medical History (Last Updated 05/04/21 @ 20:44 by Sarah Patterson MD) Atrial tachycardia Cataract Chicken pox Hearing loss Hypertension (1988) Measles Mumps No history of previous surgery (08/2014) Past Surgical History (Last Reviewed 12/05/18 @ 11:48 by Sherry Recio MD) No history of previous surgery (08/2014) Visit Care Team Role Provider Type Sarah Patterson MD Attending Provider Physician Primary Care Provider Referring Provider Specialty: [facility] Address: [address] [place] [address], [facility] Email: [email or web address] Physical Therapy Initial Evaluation PT-OP-A Visit Information Start: 05/05/21 16:08 Freq: Status: Active Protocol: Document 05/05/21 14:30 DCW (Rec: 05/05/21 16:25 DCW [id number]) Out-Patient Physical Therapy Visit Information Visit Information Visit Type Initial Evaluation Visit Start Time 14:30 Visit Stop Time 15:15 Total Visit Minutes 45 Visit Number 1 Number of INSTANTIZER OPERATOR Visits 0 Evaluation Information Evaluation Date 05/05/21 PT-OP-B Current Condition Start: 05/05/21 16:08 Freq: Status: Active Protocol: Document 05/05/21 14:30 DCW (Rec: 05/05/21 16:25 DCW [id number]) Current Condition History of Current Condition Onset Date 04/24/21 Current Complaints General wooziness, occasional dimming vision History of Current Condition Pt is an 85 year old female complaining of a 11 day history of spontaneous imbalance/light-headedness. Pt reports episodes last a varied amount of time. Symptoms are apparently not provoked by recognizable movement or situation. Pt has had three separate episodes, one when standing up out of bed, and one when performing yoga, although she doesn't think she was doing any positional changes at the time . Pt reports it felt like my vision was just going dim, and I was going to pass out. I was able to take myself down to the floor, and lay there until I felt better, but if I had stayed standing, I think I probably would have passed out. Pt denies recent hearing changes, tinnitus, diplopia, dysarthria, discoordination, or decreased mentation/ consciousness. Pt is also at this time having a cardiac workout and wearing a heart monitor. Pt notes that she has white coat syndrome, so anytime her BP is measured at a clinic, it is high, but she is able to track it at home. PT-OP-C Subjective Start: 05/05/21 16:08 Freq: Status: Active Protocol: Document 05/05/21 14:30 DCW (Rec: 05/05/21 16:25 [facility] [id number]) OP-PT Subjective Patient Comments Patient Comments There's an old suggestion, I don't know if it's just an old wives tale, that if you bend over like you're about to tie your shoe, it helps prevent you from passing out. SO I try that when it happens. PT-OP-O Vestibular Start: 05/05/21 16:08 Freq: Status: Active Protocol: Document 05/05/21 14:30 DCW (Rec: 05/05/21 16:25 [facility] [id number]) Vestibular Assessment Auditory Tests Carson Test Within normal limits Rinne Test Negative Air Conduction Results Equal Visual Testing Smooth Pursuits Horizontal WNL Smooth Pursuits Vertical WNL Saccades Horizontal WNL Gaze Evoked Nystagmus With Fixation Negative Gaze Evoked Nystagmus Without Fixation Negative Heave Test Positive Bilateral Thrust Head Positive Bilateral Cover/Uncover Test WNL Danie String Test See below Head Shake Negative Spontaneous Nystagmus Negative Positional Testing [place]-Hallpike Negative Left,Negative Right Rolling Test Negative Left,Negative Right Comments Vestibular Comments Pt unable to follow direction with Danie string test, unable to maintain focus on one bead and still comment on another bead, always switched focus. PT-OP-T Assessment and Plan Start: 05/05/21 16:08 Freq: Status: Active Protocol: Document 05/05/21 14:30 DCW (Rec: 05/05/21 16:25 [facility] [id number]) Physical Therapy Assessment Evaluation Complexity Number of Personal Factors/Comorbidities 1-2 Number of Body Systems Impaired 1-2 Clinical Presentation at Evaluation Unstable Assessment Summary Assessment Pt presents today with an unremarkable vestibular examination. Only positive test today was head impulse tests, and they were equally positive bilaterally, which typically indicates normal age -related vestibular loss. Pt's subjective complaints of sudden near-syncopal episodes are not suggestive of inner ear dysfunction, and with negative testing today, cause id more likely associated with BP changes or cardiac history . Pt is already getting work- up for potential cardiac condition. Pt did not feel BP measurements would be useful in the clinic, as her reported white coat syndrome would likely artificially inflate BP numbers anyway. Pt instructed to have daughter measure BPs at home following position changes. Pt unlikely to benefit from vestibular therapy at this time, but was instructed to return with a new referral with any change or worsening of her symptoms. Physical Therapy Plan Frequency and Duration Frequency of Treatment D/C Duration of Treatment 1 day Plan of Care Start Date 05/05/21 Plan of Care End Date 05/06/21 Discharge Physical Therapy Discharge Reasons No Longer Attending PT Next Visit Focus/Plan Next Note Type Discharge Summary
--- NOTE | 2021-05-05 16:26 | PT.OPPOC ---
Physical, Occupational & Speech Therapy At [facility] Current Diagnoses Dizziness and giddiness (05/05/21) Visit Care Team Role Provider Type Sarah Patterson MD Attending Provider Physician Primary Care Provider Referring Provider Specialty: Family Practice Address: [address] [place] [address], [id number] Email: [email or web address] Plan Of Care PT-OP-T Assessment and Plan Start: 05/05/21 16:08 Freq: Status: Active Protocol: Document 05/05/21 14:30 DCW (Rec: 05/05/21 16:25 DCW [id number]) Physical Therapy Assessment Evaluation Complexity Number of Personal Factors/Comorbidities 1-2 Number of Body Systems Impaired 1-2 Clinical Presentation at Evaluation Unstable Assessment Summary Assessment Pt presents today with an unremarkable vestibular examination. Only positive test today was head impulse tests, and they were equally positive bilaterally, which typically indicates normal age -related vestibular loss. Pt's subjective complaints of sudden near-syncopal episodes are not suggestive of inner ear dysfunction, and with negative testing today, cause id more likely associated with BP changes or cardiac history . Pt is already getting work- up for potential cardiac condition. Pt did not feel BP measurements would be useful in the clinic, as her reported white coat syndrome would likely artificially inflate BP numbers anyway. Pt instructed to have daughter measure BPs at home following position changes. Pt unlikely to benefit from vestibular therapy at this time, but was instructed to return with a new referral with any change or worsening of her symptoms. Physical Therapy Plan Frequency and Duration Frequency of Treatment D/C Duration of Treatment 1 day Plan of Care Start Date 05/05/21 Plan of Care End Date 05/06/21 Discharge Physical Therapy Discharge Reasons No Longer Attending PT Next Visit Focus/Plan Next Note Type Discharge Summary Plan of Care Dates Plan of Care Start Date 05/05/21 Plan of Care End Date 05/06/21 Electronically Signed by: Kartik Bueno, PT 05/05/21 0424 Please Sign and Return: I have reviewed this Plan of Care and certify that the skilled therapy services above are required to meet the patient?s needs. Physician Signature Date Printed Name and Credentials Clinical Instructor Signature Printed Name and Credentials
== END 2021-05-17 10:46 ==
LOC: PHYS 14:09
PROVIDERS: PCP Family Medicine; Referring Provider Family Medicine; Visit Provider Family Medicine
DX: R42 Dizziness and giddiness (principal)
CPT/HCPCS: 97161

== ENCOUNTER → 2022-02-10 09:12 | Outpatient (CLI) | payer MEDICARE, OTHER, SELFPAY ==
[2022-02-10 09:33] LABS: Add Manual Diff / Slide Review NO; Basophils Absolute Auto 0 /uL (0-100); Basophils Percent Auto 0.4 % (0-2); Eosinophils Absolute Auto 100 /uL (0-450); Hematocrit 39.3 % (36-46); Hemoglobin 13.4 g/dL (12.0-16.0); Lymphocytes Absolute Auto 800 /uL (1100-4500); Lymphocytes Percent Auto 14.6 % (25-40); Mean Corpuscular HGB Conc 33.9 % (30-36); Mean Corpuscular Hemoglobin 30.9 PG (26-34); Mean Corpuscular Volume 91.1 fL (80-100); Monocytes Absolute Auto 500 /uL (0-900); Neutrophils Absolute Auto 4400 /uL (1500-7000); Platelet Count 288 X10^3/uL (150-400); Red Blood Cell Count 4.32 X10^6/uL (4.0-5.2); Red Cell Distribution Width 13.2 % (11.6-14.8); White Blood Cell Count 5.8 X10^3/uL (4.5-11.0)
[2022-02-10 10:42] LABS: Alanine Aminotransferase 27 IU/L (<35); Albumin 4.3 g/dL (3.5-5.0); Albumin Globulin Ratio 1.9 (1.0-2.8); Alkaline Phosphatase 58 U/L (38-126); Aspartate Aminotransferase 39 IU/L (14-36); BUN Creatinine Ratio 22.2 (6-22); Bilirubin Total 0.8 mg/dL (0.2-1.3); Blood Urea Nitrogen 18 mg/dL (7-17); Calcium 9.3 mg/dL (8.4-10.2); Carbon Dioxide 26 mmol/L (22-32); Chloride 99 mmol/L (98-107); Estimated Glomerular Filt Rate > 60 mL/min (>60); Globulin 2.3 g/dL (1.7-4.1); Glucose 97 mg/dL (80-110); HEMOLYSIS < 15 (0-50); Sodium 134 mmol/L (137-145); Total Protein 6.6 g/dL (6.3-8.2)
[2022-02-10 11:11] LABS: TSH w/ Reflex to FT4 2.64 uIU/mL (0.47-4.68)
== END ==
PROVIDERS: PCP Family Medicine; Referring Provider Family Medicine; Visit Provider Family Medicine
DX: I10 Essential (primary) hypertension (principal); Z13.29 Encounter for screening for other suspected endocrine disorder
CPT/HCPCS: 36415; 80053; 84443; 85025

== ENCOUNTER → 2022-06-12 13:36 | Outpatient (CLI) | payer MEDICARE, OTHER, SELFPAY ==
--- NOTE | 2022-06-12 13:38 | DI.ECHO.S_ITS ---
[facility] +---------+ : : [address] : : : : [id number] : : : : Phone: [phone]---------+ Echocardiogram Report + + :Name: TONIA SHAW Study Date: 06/12/2022 Height: 65 in : :[facility] ReadingLocation: Weight: 97 lb : : Gender: Female BSA: 1.5 m2 : :: 1935 Age: 86 yrs BP: 205/102 mmHg: :Reason For Study: Hypertension : :Ordering Physician: GERMAIN, : :AN Performed By: Aron Mesa : :Referring: AN GROVES : + + Interpretation Summary The ejection fraction is estimated to be 60-65%. There is mild to moderate aortic regurgitation. There is mild mitral regurgitation. There is mild tricuspid regurgitation. The right ventricular systolic pressure is estimated to be at least 43 mmHg based on an estimated right atrial pressure of 3 mm Hg. Procedure: A two-dimensional transthoracic echocardiogram with color flow and Doppler was performed. The study quality was technically adequate. Comparison is made with the echocardiogram of 10/03/2018. Left Ventricle: The left ventricle is normal in size and wall thickness. Left ventricular systolic function is normal. The ejection fraction is estimated to be 60-65%. There are no focal wall motion abnormalities. Diastolic parameters suggest a pseudonormalization pattern, consistent with probable elevated filling pressures. Right Ventricle: The right ventricle is normal in size and function. Atria: Both atria are severely dilated. The interatrial septum grossly appears intact with no obvious evidence for an atrial septal defect. Mitral Valve: The mitral valve leaflets appear mildly thickened, but open well. There is mild mitral regurgitation. Aortic Valve: There is mild aortic valve sclerosis. There is mild to moderate aortic regurgitation. This is unchanged compared to the previous study. Tricuspid Valve: The tricuspid valve is normal in structure and function. There is mild tricuspid regurgitation. The right ventricular systolic pressure is estimated to be at least 43 mmHg based on an estimated right atrial pressure of 3 mm Hg. Pulmonic Valve: The pulmonic valve is normal in structure and function. There is trace pulmonic regurgitation. Great Vessels: The aortic root is normal size. The dimensions of the ascending aorta are normal. The IVC is of normal diameter and collapses greater than 50% with a sniff. This suggests a low right atrial pressure of 3 mm Hg. Pericardium/ Pleura There is no pericardial effusion. There is no pleural effusion. MMode/2D Measurements & Calculations LVIDd: 4.1 cm LVOT diam: 1.8 cm LVIDs: 2.7 cm Ao root diam: 2.8 cm FS: 34.1 % asc Aorta Diam: 3.3 cm IVSd: 1.0 cm LVPWd: 0.90 cm LV folres. diameter/BSA (cm/m^2): 2.8 LV sys. diameter/BSA (cm/m^2): 1.9 LA dimension: 3.3 cm RA long axis: 6.0 cm LA A2 area: 22.5 cm2 LA A4 area: 23.7 cm2 LA length (vol): 5.7 cm LA vol: 79.8 ml LA vol index: 54.9 ml/m2 TAPSE_phl: 2.8 cm Doppler Measurements & Calculations Ao V2 max: 131.0 cm/sec LVOT Max Peter: 97.9 cm/sec Ao V2 mean: 90.8 cm/sec LV V1 max P.8 mmHg Ao max P.0 mmHg LV V1 VTI: 19.7 cm Ao mean P.0 mmHg GABE(I,D): 1.8 cm2 Ao V2 VTI: 27.3 cm GABE(V,D): 1.9 cm2 sev ratio: 0.72 GABE indexed to BSA (cm^2/m^2): 1.3 AI P1/2t: 546.2 msec AI dec slope: 237.0 cm/sec2 MV E max peter: 108.0 cm/sec TR max peter: 317.0 cm/sec MV A max peter: 87.8 cm/sec TR max P.2 mmHg MV E/A: 1.2 Med Peak E' Peter: 4.6 cm/sec E/E' med: 23.3 Lat Peak E' Peetr: 6.8 cm/sec E/E' lat: 16.0 E/e' average: 19.6 MV dec time: 0.17 sec SV(LVOT): 50.1 ml AV P1/2t-pr_phl: 546.0 msec AV VR_phl: 0.75 GABE(VTI)/BSA_phl: 1.3 MV P1/2t-pr_phl: 49.0 msec Reading Physician:03:53 PM
== END ==
PROVIDERS: PCP Family Medicine; Referring Provider Family Medicine; Visit Provider Family Medicine
DX: I10 Essential (primary) hypertension (principal); I08.3 Combined rheumatic disorders of mitral, aortic and tricuspid valves
CPT/HCPCS: 93306

== ENCOUNTER 2022-08-02 11:51 | Outpatient (RCR) | payer MEDICARE, OTHER, SELFPAY ==
--- NOTE | 2022-08-02 14:45 | PT.OIE ---
Current Diagnoses Other abnormalities of gait and mobility (08/02/22) Past Medical History (Last Updated 05/04/21 @ 20:44 by Sarah Patterson MD) Atrial tachycardia Cataract Chicken pox Hearing loss Hypertension (1988) Measles Mumps Past Surgical History (Last Reviewed 12/05/18 @ 11:48 by Sherry Recio MD) No history of previous surgery (08/2014) Visit Care Team Role Provider Type Sarah Patterson MD Attending Provider Physician Primary Care Provider Referring Provider Specialty: [facility] Address: [address] [place] [address], [facility] Email: [email or web address] Physical Therapy Initial Evaluation PT-OP-A Visit Information Start: 08/02/22 14:31 Freq: Status: Active Protocol: Document 08/02/22 12:00 DCW (Rec: 08/02/22 14:45 DCW [id number]) Out-Patient Physical Therapy Visit Information Visit Information Visit Type Initial Evaluation Visit Start Time 12:00 Visit Stop Time 12:40 Total Visit Minutes 40 Visit Number 1 Number of MANAGER TRAINING Visits 0 Evaluation Information Evaluation Date 08/02/22 PT-OP-B Current Condition Start: 08/02/22 14:31 Freq: Status: Active Protocol: Document 08/02/22 12:00 DCW (Rec: 08/02/22 14:45 DCW [id number]) Current Condition History of Current Condition History of Current Condition Pt is an 86 year old female presenting to physical therapy after reporting to her PCP 2- 3 months ago that she felt like her balance was declining . Pt admits that she has actually been feeling much better ever since then, and does not feel like she really needs to be here, but my daughter thinks that I do. Pt reports she regularly does yoga and balance exercises at home, performs 10 sit<->stands every morning, and goes out hiking. Admits she does have decreased confidence when she needs to step down a curb without anything to hold onto, but she is able to do it. Does not use any assistive devices and does not feel the need to. 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 PT-OP-C Subjective Start: 08/02/22 14:31 Freq: Status: Active Protocol: Document 08/02/22 12:00 DCW (Rec: 08/02/22 14:45 DCW [id number]) OP-PT Subjective Patient Comments Patient Comments I'm not really sure why I'm here. Patient Reported Progress Improving PT-OP-D Balance Start: 08/02/22 14:31 Freq: Status: Active Protocol: Document 08/02/22 12:00 DCW (Rec: 08/02/22 14:45 DCW [id number]) OP-PT Balance Assessment Sitting Balance Dynamic Sitting Balance Ability Normal Standing Balance Static Standing Balance Ability Normal Dynamic Standing Balance Ability Good Device Used None Balance Tests Lerma Balance Test Lerma Balance Test Score 55/56 Lerma Impairment Rating 1 to 19% Impaired (Score 45-55 ) Lerma Balance Assessment Evaluation Sitting to Standing Ability Independent w/out Hands Unsupported Stance Safely- 2 minutes Sitting Unsupported, Feet on Floor Safely- 2 minutes Standing to Sitting Ability Safely, Minimal Hand Use Transfer Ability Safely, Minimal Hand Use Unsupported Stance- Eyes Closed Safely, 10 seconds Unsupported Stance- Eyes Open Independent, 1 minute Reaching Forward Standing Confidently, 10 inches Pick- Up Object From Floor Independent/Safe Look Behind Shoulder - Standing Shifts Weight Well Turning 360 Degrees Turns Bilateral, < 4 secs Unsupported Stance, Alternating Feet on (I)- 8 Steps in 20 secs Stair Unsupported Tandem Stance Holds Tandem- 30 seconds Unilateral Leg Stance Lifts Leg/Holds 10 secs Total Score Lerma Total Score (out of 56 points) 55 Lerma Impairment Rating 1 to 19% Impaired (Score 45-55 ) Boone Fall Scale Copyright Permission PT-OP-E Functional Tests Start: 08/02/22 14:31 Freq: Status: Active Protocol: Document 08/02/22 12:00 DCW (Rec: 08/02/22 14:45 DCW [id number]) Functional Tests Dynamic Gait Index (DGI) Score 20/24 DGI Impairment Rating 1 to <20% Impaired (Score 20- 23) PT-OP-M Strength Start: 08/02/22 14:31 Freq: Status: Active Protocol: Document 08/02/22 12:00 DCW (Rec: 08/02/22 14:45 DCW [id number]) Hip Strength Hip Manual Muscle Testing Right Flexion (L2) 4 Good Abduction 4+ Good+ Adduction 4+ Good+ External Rotation 4+ Good+ Internal Rotation 4+ Good+ Left Flexion (L2) 4 Good Abduction 4+ Good+ Adduction 4+ Good+ External Rotation 4+ Good+ Internal Rotation 4+ Good+ Knee Strength Knee Manual Muscle Testing Right Flexion (S2) 4+ Good+ Extension (L3) 4+ Good+ Left Flexion (S2) 4+ Good+ Extension (L3) 4+ Good+ Ankle/Foot Strength Ankle and Foot Manual Muscle Testing Right Dorsiflexion (L4) 4+ Good+ Left Dorsiflexion (L4) 4+ Good+ PT-OP-T Assessment and Plan Start: 08/02/22 14:31 Freq: Status: Active Protocol: Document 08/02/22 12:00 DCW (Rec: 08/02/22 14:45 DCW [id number]) Physical Therapy Assessment Evaluation Complexity Number of Personal Factors/Comorbidities 1-2 Number of Body Systems Impaired 1-2 Clinical Presentation at Evaluation Stable Assessment Summary Assessment Pt doing incredibly well at the time of her evaluation. Score of 55/56 on the Lerma is much better than average for her age group, and is not suggestive of any increased risk of falls. Similarly, a DGI score of 20/24 is well within normal limits, and does not indicate a falls risk or need for an assistive device. Pt already reports doing very well with an independent HEP, and performs balance challenges, yoga, and gets out walking regularly. At this time, there does not appear to be any indication that pt is in need of further skilled therapeutic services. Did discuss with pt that if she begins to experiencing worsening balance, weakness, or difficulty with her neuropathy, it may be beneficial at that time to return to PT with a new referral. Pt to be discharged from skilled therapy at this time. Physical Therapy Plan Frequency and Duration Frequency of Treatment 1x/Week Plan of Care Start Date 08/02/22 Plan of Care End Date 08/03/22 Discharge Physical Therapy Discharge Comments No further skilled PT indicated at this time. Next Visit Focus/Plan Next Note Type Discharge Summary
--- NOTE | 2022-08-02 14:45 | PT.OPPOC ---
Physical, Occupational & Speech Therapy At [facility] Current Diagnoses Other abnormalities of gait and mobility (08/02/22) Visit Care Team Role Provider Type Sarah Patterson MD Attending Provider Physician Primary Care Provider Referring Provider Specialty: Family Practice Address: [address] [place] [address], [id number] Email: [email or web address] Plan Of Care PT-OP-T Assessment and Plan Start: 08/02/22 14:31 Freq: Status: Active Protocol: Document 08/02/22 12:00 DCW (Rec: 08/02/22 14:45 DCW [id number]) Physical Therapy Assessment Evaluation Complexity Number of Personal Factors/Comorbidities 1-2 Number of Body Systems Impaired 1-2 Clinical Presentation at Evaluation Stable Assessment Summary Assessment Pt doing incredibly well at the time of her evaluation. Score of 55/56 on the Lerma is much better than average for her age group, and is not suggestive of any increased risk of falls. Similarly, a DGI score of 20/24 is well within normal limits, and does not indicate a falls risk or need for an assistive device. Pt already reports doing very well with an independent HEP, and performs balance challenges, yoga, and gets out walking regularly. At this time, there does not appear to be any indication that pt is in need of further skilled therapeutic services. Did discuss with pt that if she begins to experiencing worsening balance, weakness, or difficulty with her neuropathy, it may be beneficial at that time to return to PT with a new referral. Pt to be discharged from skilled therapy at this time. Physical Therapy Plan Frequency and Duration Frequency of Treatment 1x/Week Plan of Care Start Date 08/02/22 Plan of Care End Date 08/03/22 Discharge Physical Therapy Discharge Comments No further skilled PT indicated at this time. Next Visit Focus/Plan Next Note Type Discharge Summary Plan of Care Dates Plan of Care Start Date 08/02/22 Plan of Care End Date 08/03/22 Electronically Signed by: Kartik Beuno, PT 08/02/22 [id number] If you are in agreement with this Plan of Care, please return a signed and dated copy. I have reviewed this Plan of Care and certify that the skilled therapy services above are required to meet the patient?s needs. Physician Signature Date Printed Name and Credentials Clinical Instructor Signature Printed Name and Credentials
== END 2022-08-07 11:51 | disposition home or self-care (01) ==
LOC: PHYS 11:51
PROVIDERS: PCP Family Medicine; Referring Provider Family Medicine; Visit Provider Family Medicine
DX: R26.89 Other abnormalities of gait and mobility (principal)
CPT/HCPCS: 97161

== ENCOUNTER 2022-12-03 01:34 | Inpatient (IN) | payer MEDICARE, OTHER, SELFPAY ==
[2022-12-03] VITALS (24 sets, daily range): BP systolic 117–149; BP diastolic 55–82; PULSE 77–112; RESP 9–29; TEMP 36.4–38.2; O2SAT 93–100; BMI 15.9
--- NOTE | 2022-12-03 01:42 | DI.CT.S_ITS ---
PROCEDURE: CT CHEST ABD PEL W CON INDICATIONS: Trauma TECHNIQUE: After the administration of oral and intravenous contrast, axial sections acquired from the supraclavicular neck to the pubic symphysis. Coronal and sagittal reformats were performed. For radiation dose reduction, the following was used: automated exposure control, adjustment of mA and/or kV according to patient size. COMPARISON: None. FINDINGS: Image quality: Excellent. CHEST: Lower Neck: No enlarged lymph nodes. Thyroid: Low-attenuation left lobe focus is present. Axillae: No enlarged lymph nodes. Chest Wall: Unremarkable. Lungs and Airways: Lungs are hyperinflated. Heart: Heart size is mildly enlarged. No pericardial effusion. Thoracic Vessels: The aorta and pulmonary arteries demonstrate normal size. Mediastinum and Caterina: No enlarged lymph nodes. Esophagus: No wall thickening. Minimal hiatal hernia. ABDOMEN: Liver: Simple hepatic cysts are present. Mild fatty infiltration. Gallbladder: Unremarkable. Biliary ducts: Unremarkable. Pancreas: Unremarkable. Spleen: Unremarkable. Adrenal Glands: Unremarkable. Kidneys and Ureters: Unremarkable. Stomach and Bowel: Stomach, small bowel loops, and colon are unremarkable. Peritoneum: No abnormal intraperitoneal fluid. No free air. Ventral Wall: No hernia. Abdominal Nodes: No retroperitoneal or mesenteric adenopathy by size criteria. Vessels: Aorta and inferior vena cava are normal in size. PELVIS: Pelvic Organs: Within the lower pelvis or is a rounded hypodense structure appearing to be within the uterus measuring 4.2 x 4.5 x 4.0 cm. Bladder: Unremarkable. Pelvic Nodes: No enlarged lymph nodes. Miscellaneous: No inguinal hernias are seen. Bones: Degenerative changes are present. IMPRESSION: No acute trauma intra-abdominal or pelvic visceral or osseous abnormality. Simple hepatic cysts. Low-attenuation focus within the uterus suggestive of fibroid. As clinically indicated for further evaluation, ultrasound may be obtained. The above findings are concordant with preliminary report. Dictated by: Emma Denton M.D. on 12/03/2022 at 8:32 Approved by: Emma Denton M.D. on 12/03/2022 at 8:40
--- NOTE | 2022-12-03 01:42 | DI.CT.S_ITS ---
PROCEDURE: CT HEAD/BRAIN WO CON INDICATIONS: Trauma TECHNIQUE: Noncontrast 4.5 mm thick angled axial sections acquired from the foramen magnum to the vertex, with coronal and sagittal reformats. For radiation dose reduction, the following was used: automated exposure control, adjustment of mA and/or kV according to patient size. COMPARISON: None. FINDINGS: Image quality: Excellent. CSF spaces: Basal cisterns are patent. No extra-axial fluid collections. The ventricles are symmetric in size and shape. Brain: No intracranial bleeds. Calcified mass along the anterior falx is present.. Low-attenuation is present in the right parietal occipital lobe. There is ill-defined hyperdensity within the P1 and P2 segments of the right posterior cerebral artery. There is cerebral volume loss for age, with resultant ventricular and sulcal prominence. There are periventricular and deep white matter chronic small vessel ischemic changes. There is intracranial internal carotid artery atherosclerosis. Skull and face: Calvarium and visualized facial bones appear intact, without suspicious lesions. Sinuses: Visualized sinuses and mastoids are clear. IMPRESSION: Low-attenuation within the right parietal occipital lobe appearing subacute/late subacute. There is partially visualized hyperdensity within partially visualized segments of the P1 and P2 segment of the posterior cerebral artery on the right suggestive of thrombus and subsequent infarction. Atrophy and chronic microvascular ischemic changes. Calcified mass within the anterior falx suggestive of meningioma. No priors are available for comparison. The above findings are concordant with preliminary report. Dictated by: Emma Denton M.D. on 12/03/2022 at 8:19 Approved by: Emma Denton M.D. on 12/03/2022 at 8:24
--- NOTE | 2022-12-03 01:42 | DI.CT.S_ITS ---
PROCEDURE: CT CERVICAL SPINE WO CON INDICATIONS: Trauma TECHNIQUE: Noncontrast 3 mm thick sections acquired from the skull base to the T4 level. Sagittal and coronal reformats were then constructed. For radiation dose reduction, the following was used: automated exposure control, adjustment of mA and/or kV according to patient size. COMPARISON: [facility], CT, CT HEAD/BRAIN WO CON, 12/03/2022, 1:51. FINDINGS: Image quality: Excellent. Bones: No fractures or dislocations. Visualized superior ribs are intact. Multilevel degenerative changes are present. 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 Soft tissues: Prevertebral soft tissues are normal in thickness. No paravertebral hematomas. No apical pneumothoraces. IMPRESSION: Multilevel degenerative changes of visualized fracture. The above findings are concordant with preliminary report. Dictated by: Emma Denton M.D. on 12/03/2022 at 8:24 Approved by: Emma Denton M.D. on 12/03/2022 at 8:26
[2022-12-03 01:55] LABS: Add Manual Diff / Slide Review NO; Basophils Absolute Auto 0 /uL (0-100); Basophils Percent Auto 0.4 % (0-2); Eosinophils Absolute Auto 0 /uL (0-450); Eosinophils Percent Auto 0.2 % (2-4); Hematocrit 37.3 % (36-46); Hemoglobin 12.7 g/dL (12.0-16.0); Lymphocytes Absolute Auto 1400 /uL (1100-4500); Lymphocytes Percent Auto 19.1 % (25-40); Mean Corpuscular HGB Conc 33.9 % (30-36); Mean Corpuscular Hemoglobin 30.2 PG (26-34); Mean Corpuscular Volume 89.1 fL (80-100); Monocytes Absolute Auto 500 /uL (0-900); Monocytes Percent Auto 6.3 % (3-14); Neutrophils Absolute Auto 5500 /uL (1500-7000); Platelet Count 293 X10^3/uL (150-400); Red Blood Cell Count 4.19 X10^6/uL (4.0-5.2); Red Cell Distribution Width 12.7 % (11.6-14.8); White Blood Cell Count 7.4 X10^3/uL (4.5-11.0)
[2022-12-03 02:01] LABS: INR 0.9 (0.9-1.3); Prothrombin Time 10.8 SECONDS (10.1-12.7)
[2022-12-03 02:03] LABS: PTT Partial Thromboplastin Tim 26 SECONDS (26-36)
[2022-12-03 02:04] LABS: Lactate (Lactic Acid) 1.4 mmol/L (0.7-2.1)
[2022-12-03 02:06] LABS: Alanine Aminotransferase 28 IU/L (<35); Albumin 4.6 g/dL (3.5-5.0); Albumin Globulin Ratio 1.7 (1.0-2.8); Alkaline Phosphatase 77 U/L (38-126); Aspartate Aminotransferase 38 IU/L (14-36); BUN Creatinine Ratio 20.5 (6-22); Bilirubin Total 0.6 mg/dL (0.2-1.3); Blood Urea Nitrogen 18 mg/dL (7-17); Calcium 9.3 mg/dL (8.4-10.2); Carbon Dioxide 24 mmol/L (22-32); Chloride 100 mmol/L (98-107); Estimated Glomerular Filt Rate > 60 mL/min (>60); Ethanol (ETOH) < 10 mg/dL; Globulin 2.7 g/dL (1.7-4.1); Glucose 102 mg/dL (80-110); HEMOLYSIS < 15 (0-50); Lipase 76 U/L (23-300); Potassium 4.1 mmol/L (3.4-5.1); Sodium 133 mmol/L (137-145); Total Protein 7.3 g/dL (6.3-8.2)
--- NOTE | 2022-12-03 02:30 | ED_ITS ---
HPI - Fall General Chief Complaint: Fall Stated Complaint: GLF Time Seen by Provider: 12/03/22 01:41 Source: family and EMS Mode of arrival: EMS History of Present Illness HPI Narrative: 87-year-old female nonsmoker with a history of atrial tachycardia, hypertension presents by EMS for evaluation of multiple falls and confusion. EMS reports that they saw her earlier today and she was alert and oriented and after they checked her out they were sent on their way. Over the course of the day she fell at least 1 more time and is now altered and perseverating, it is unclear how she fell but she initially stated that her legs were feeling a bit weak. Patient is activated as a modified trauma given her age, fall and suspicion of possible injury Once the son arrives story becomes a bit more clear. He states that his mother is normally high functioning and lives at home alone. She called him on and stated that she just was not feeling well, she was very nondescript and nonspecific but that alone was atypical for her and he drove up to see her. He states that she had been forgetful and seemed to be walking a bit ?crooked?. He states that she dropped things and feels like her left arm maybe was working as well. Related Data Home Medications Medication Instructions Recorded Confirmed multivitamin 1 tab PO DAILY ##0 06/25/12 08/16/22 Previous Rx's Medication Instructions Recorded metoprolol succinate 100 mg 100 mg PO BID #180 tabs 05/26/22 tablet,extended release 24 hr enalapril maleate 20 mg tablet See Rx Instructions .Route 06/28/22 .COMPLEX #90 tabs amlodipine 5 mg tablet See Rx Instructions .Route 08/16/22 .COMPLEX #90 tabs Allergies Allergy/AdvReac Type Severity Reaction Status Date / Time No Known Drug Allergies Allergy Verified 08/16/22 14:25 Review of Systems Review of Systems Narrative: GENERAL: Denies chills, fatigue, malaise, fever, sweats. HEENT: Denies sinus pain, ear pain, sore throat, difficulty swallowing, dizziness. RESPIRATORY: Denies dyspnea, cough, wheezing, hemoptysis, sputum. CARDIOVASCULAR: Denies chest pain, palpitations, orthopnea, edema, GASTROINTESTINAL: Denies nausea, vomiting, abdominal pain, diarrhea, constipation, melena. : Denies dysuria, frequency, incontinence, hematuria, urinary retention. MUSCULOSKELETAL: denies weakness, joint pain, or bony pain SKIN: Denies rash, skin lesions, or other NEUROLOGIC: See HPI PSYCHIATRIC: No concerning psychosocial issues. 12 point review of systems is negative except for those stated above Patient History Medical History Atrial tachycardia Cataract Chicken pox Hearing loss Hypertension (1988) Measles Mumps Surgical History No history of previous surgery (08/2014) Family History Child Age: 59 Hypertension Sister Age: 84 Hypertension Cancer Father Lung disease Heart disease Mother Atrial fibrillation Social History marital status: number of children: 2 household members: none lives independently: Yes caregiver/support person: No housing: house pets and animals: No education level: college occupational status: previously employed special payal needs: No leisure activities: sports, exercise, music and reading seatbelt use: always helmet use: Yes water heater temp set < 120 deg: Yes working smoke detector in home: Yes fire extinguisher in home: No carbon monox detector in home: No firearms in home: Yes (unloaded but not locked up) firearms unloaded and locked: No do you feel safe at home: Yes Smoking Status: Never smoker second hand exposure: No alcohol intake: current substance use type: does not use Type(s) of exercise: walking, regular exercise and yoga frequency: daily duration: 30-45 minutes/day Smoking Status: Never smoker alcohol intake frequency: 3 or more drinks per day Substance Use Type: does not use Exam Narrative Exam Narrative: GENERAL: [87] year old patient appears stated age. Well-developed patient, in mild distress. Very hard of hearing. Pleasantly confused, GCS 14 HEAD: Atraumatic. Normocephalic. EYES: Pupils equal round and reactive. No hyphema Extraocular motions intact. No scleral icterus. No injection or drainage. ENT: Nose without bleeding, purulent drainage. Throat without erythema, tonsillar hypertrophy or exudate. Airway patent. NECK: Trachea midline. Non tender, no step-offs or crepitance CARDIOVASCULAR: Regular rate and rhythm without murmurs, gallops, or rubs. RESPIRATORY: Clear to auscultation. Breath sounds equal bilaterally. No wheezes, rales, or rhonchi. GASTROINTESTINAL: Abdomen soft, non-tender, nondistended. EXTREMITIES: No edema or joint tenderness. BACK: Nontender without deformity or crepitance. No flank tenderness. NEURO: AOx3. SKIN: No rash or erythema of visible areas Initial Vital Signs Initial Vital Signs: Vital Signs Oxygen Delivery Method Room Air 12/03/22 01:35 Scores NIH Stroke Scale Level of Conciousness: Alert, keenly responsive Ask month/age: Answers one question correctly, intubated follow commands Open/close eyes, close hand: Performs both tasks correctly Best gaze horizontal: Normal Visual hall: Partial hemianopia Facial palsy: Normal symetrical movement Left arm drift: Drifts down, not to bed Right arm drift: No drift for full 10 sec Left leg drift: No drift for full 5 sec Right leg drift: No drift for full 5 sec Limb ataxia: Present in one limb Sensory on face/arms/legs: Mild to moderate sensory loss, can tell touch Best language: No aphasia, normal Dysarthria: Normal Extinction or inattention: No abnormality Total NIH Stroke scale score: 5 Course Orders Ordered: ED Orders 12/03/22 01:40 Complete Blood Count AUTO DIFF Stat Comprehensive Metabolic Panel Stat Ethanol (ETOH) Stat Lactate (Lactic Acid) Stat Lipase Stat PTT Partial Thromboplastin Kang Stat Prothrombin Time INR Stat 12/03/22 01:42 CT cervical spine wo con Stat CT chest abd pel w con Stat CT head/brain wo con Stat Type and Screen Stat EKG-12 Lead Stat 12/03/22 01:52 Urine Drug Screen, Rapid Stat Discontinued Medications Diphtheria/Tetanus/Acell Pertussis (Tet,Diph,Pertuss(Acell),Vac/Pf 0.5 Ml Syringe) 0.5 ml IM .ONCE ONE Stop: 12/03/22 01:43 Consultations Consultation #1: Discussed with [facility] stroke. Timeline and imaging would suggest that patient is outside of any potential thrombectomy. Dr. Guadalupe recommends patient be admitted here, started on aspirin and do the typical stroke workup for those outside of the window Consultation #2: Dr. Carlin happy to accept this patient on behalf of Dr. Patterson Vital Signs Vital signs: Vital Signs - 8 hr 12/03/22 01:35 Oxygen Delivery Method Room Air MDM - Fall Lab Data 12/03/22 01:40 12/03/22 01:40 Labs: Lab Results 12/03/22 12/03/22 12/03/22 Range/Units 01:40 01:40 01:40 WBC 7.4 (4.5-11.0) X10^3/uL RBC 4.19 (4.0-5.2) X10^6/uL Hgb 12.7 (12.0-16.0) g/dL Hct 37.3 (36-46) % MCV 89.1 (80-100) fL MCH 30.2 (26-34) PG MCHC 33.9 (30-36) % RDW 12.7 (11.6-14.8) % Plt Count 293 (150-400) X10^3/uL Neut % (Auto) 74.0 (50-75) % Lymph % (Auto) 19.1 L (25-40) % Caswell % (Auto) 6.3 (3-14) % Eos % (Auto) 0.2 L (2-4) % Baso % (Auto) 0.4 (0-2) % Neut # (Auto) 5500 (8961-4687) /uL Lymph # (Auto) 1400 (4403-0258) /uL Caswell # (Auto) 500 (0-900) /uL Eos # (Auto) 0 (0-450) /uL Baso # (Auto) 0 (0-100) /uL PT 10.8 (10.1-12.7) SECONDS INR 0.9 (0.9-1.3) APTT 26 (26-36) SECONDS Sodium 133 L (137-145) mmol/L Potassium 4.1 (3.4-5.1) mmol/L Chloride 100 (98-107) mmol/L Carbon Dioxide 24 (22-32) mmol/L BUN 18 H (7-17) mg/dL Creatinine 0.88 (0.52-1.04) mg/dL Estimated GFR > 60 (>60) mL/min BUN/Creatinine Ratio 20.5 (6-22) Glucose 102 (80-110) mg/dL Lactate (0.7-2.1) mmol/L Calcium 9.3 (8.4-10.2) mg/dL Total Bilirubin 0.6 (0.2-1.3) mg/dL AST 38 H (14-36) IU/L ALT 28 (<35) IU/L Alkaline Phosphatase 77 (38-126) U/L Total Protein 7.3 (6.3-8.2) g/dL Albumin 4.6 (3.5-5.0) g/dL Globulin 2.7 (1.7-4.1) g/dL Albumin/Globulin Ratio 1.7 (1.0-2.8) Lipase 76 (23-300) U/L U Opiates 300ng/mL cut (Negative) Ur Oxycodone Screen (Negative) Urine Methadone Screen (Negative) Ur Barbiturates Screen (Negative) U Tricyclic Antidepress (Negative) Ur Phencyclidine Scrn (Negative) Ur Amphetamines Screen (Negative) U Methamphetamines Scrn (Negative) Ur MDMA Scrn (Ecstasy) (Negative) U Benzodiazepines Scrn (Negative) Urine Cocaine Screen (Negative) U Marijuana (THC) Screen (Negative) Ethyl Alcohol < 10 ( - 10) mg/dL 12/03/22 12/03/22 Range/Units 01:40 01:52 WBC (4.5-11.0) X10^3/uL RBC (4.0-5.2) X10^6/uL Hgb (12.0-16.0) g/dL Hct (36-46) % MCV (80-100) fL MCH (26-34) PG MCHC (30-36) % RDW (11.6-14.8) % Plt Count (150-400) X10^3/uL Neut % (Auto) (50-75) % Lymph % (Auto) (25-40) % Caswell % (Auto) (3-14) % Eos % (Auto) (2-4) % Baso % (Auto) (0-2) % Neut # (Auto) (7993-3258) /uL Lymph # (Auto) (2918-2300) /uL Caswell # (Auto) (0-900) /uL Eos # (Auto) (0-450) /uL Baso # (Auto) (0-100) /uL PT (10.1-12.7) SECONDS INR (0.9-1.3) APTT (26-36) SECONDS Sodium (137-145) mmol/L Potassium (3.4-5.1) mmol/L Chloride (98-107) mmol/L Carbon Dioxide (22-32) mmol/L BUN (7-17) mg/dL Creatinine (0.52-1.04) mg/dL Estimated GFR (>60) mL/min BUN/Creatinine Ratio (6-22) Glucose (80-110) mg/dL Lactate 1.4 (0.7-2.1) mmol/L Calcium (8.4-10.2) mg/dL Total Bilirubin (0.2-1.3) mg/dL AST (14-36) IU/L ALT (<35) IU/L Alkaline Phosphatase (38-126) U/L Total Protein (6.3-8.2) g/dL Albumin (3.5-5.0) g/dL Globulin (1.7-4.1) g/dL Albumin/Globulin Ratio (1.0-2.8) Lipase (23-300) U/L U Opiates 300ng/mL cut Positive H (Negative) Ur Oxycodone Screen Negative (Negative) Urine Methadone Screen Negative (Negative) Ur Barbiturates Screen Negative (Negative) U Tricyclic Antidepress Negative (Negative) Ur Phencyclidine Scrn Negative (Negative) Ur Amphetamines Screen Negative (Negative) U Methamphetamines Scrn Negative (Negative) Ur MDMA Scrn (Ecstasy) Negative (Negative) U Benzodiazepines Scrn Negative (Negative) Urine Cocaine Screen Negative (Negative) U Marijuana (THC) Screen Negative (Negative) Ethyl Alcohol ( - 10) mg/dL Urine Dip Bedside Urine Glucose Negative Bedside Urine Bilirubin - Negative Bedside Urine Ketone - Negative Urine Specific Pitcher 1.010 Bedside Urine Occult Blood - Negative Bedside Urine pH 6.0 Bedside Urine Protein - Negative Bedside Urine Urobilinogen - Negative Bedside Urine Nitrite - Negative Bedside Urine Leukocytes - Negative Esterase MDM Narrative Medical decision making narrative: 87-year-old female presents by EMS for evaluation of confusion and falls. She is found to have radiographic evidence of subacute cerebral infarct. There is no evidence of any traumatic injury. Labs are reassuring. I have had lengthy discussion at the bedside with the patient and her son, they confirmed that she is a DNR with limited intervention and is certainly agreeable to hospitalization for further evaluation. She understands that she likely will need to go to a skilled nursing. I have had consultation with [facility] stroke, there is no indication or criteria met for intervention. They recommend typical workup and aspirin. Critical Care Time Critical Care Time Critical Care Time: Yes Total Critical Care Time: 35 Attestation: The high probability of a clinically significant, sudden or life threatening deterioration of the [NV] system(s) required my full and direct attention, int ervention and personal management. The aggregate critical care time was [35] minutes. This time is in addition to time spent performing reported procedures but includes the following: [x] Data Review and interpretation [x] Patient assessment and monitoring of vital signs [x] Documentation [x] Medication orders and management Discharge Plan Departure Patient Disposition: Admitted As Inpatient Clinical Impression: Stroke
[2022-12-03 02:55] LABS: UR Morphine/Opiate cutoff 300 Positive (Negative); Ur Creatinine 20 (Normal); Ur Specific Gravity 1.015 (Normal); Urine Amphetamines Negative (Negative); Urine Barbiturates Negative (Negative); Urine Benzodiazepines Negative (Negative); Urine Cocaine Negative (Negative); Urine MDMA Negative (Negative); Urine Methadone Negative (Negative); Urine Methamphetamines Negative (Negative); Urine Oxycodone Negative (Negative); Urine Phencyclidine Negative (Negative); Urine Tetrahydrocannabinol Negative (Negative); Urine Tricyclic Antidepressant Negative (Negative); Urine pH 5 (Normal)
--- NOTE | 2022-12-03 08:27 | DI.ECHO.S_ITS ---
[facility]---------+ [facility] +---------+ : : [address] : : : : [id number] : : : : Phone: [phone] Echocardiogram Report + + :Name: TONIA SHAW Study Date: 12/03/2022 Height: 65 in : :[facility] ReadingLocation: Weight: 108 lb : : Gender: Female BSA: 1.5 m2 : :: 1935 Age: 87 yrs BP: 122/55 mmHg: :Reason For Study: STROKE : :Ordering Physician: REBEL, : :TALYA Performed By: Sylvia Weiner : :Referring: TALYA LUQUE : + + Interpretation Summary The ejection fraction is estimated to be 65-70%. Grade II diastolic dysfunction. The left atrium is moderately dilated. The right ventricle is normal in size and function. The right atrium is mildly dilated. There is mild mitral regurgitation. There is mild aortic regurgitation. There is moderate tricuspid regurgitation. The right ventricular systolic pressure is estimated to be at least 33 mmHg based on an estimated right atrial pressure of 3 mm Hg. Compared to the prior study dated 06/12/2022, no significant change. Procedure: A two-dimensional transthoracic echocardiogram with color flow and Doppler was performed. The study quality was technically adequate. Comparison is made with the echocardiogram of 06/12/2022. The heart rate ranged between 77-112 bpm during the study. Left Ventricle: The left ventricle is normal in size and wall thickness. The ejection fraction is estimated to be 65-70%. Diastolic parameters suggest a pseudonormalization pattern, consistent with probable elevated filling pressures. Right Ventricle: The right ventricle is normal in size and function. Atria: The left atrium is moderately dilated. The right atrium is mildly dilated. There is no Doppler evidence for an interatrial shunt. Mitral Valve: The mitral valve leaflets appear mildly thickened, but open well. The mitral valve leaflets are slightly calcified. There is mild mitral regurgitation. Aortic Valve: The aortic valve is mildly calcified. There is mild aortic valve sclerosis. The aortic valve is trileaflet. There is no aortic valve stenosis. There is mild aortic regurgitation. Tricuspid Valve: The tricuspid valve is normal in structure and function. There is moderate tricuspid regurgitation. The right ventricular systolic pressure is estimated to be at least 33 mmHg based on an estimated right atrial pressure of 3 mm Hg. Pulmonic Valve: The pulmonic valve is not well seen, but is grossly normal. There is no pulmonic valvular regurgitation. Great Vessels: The aortic root is normal size. The dimensions of the ascending aorta are normal. The IVC is of normal diameter and collapses greater than 50% with a sniff. This suggests a low right atrial pressure of 3 mm Hg. Pericardium/ Pleura There is no pericardial effusion. There is no pleural effusion. MMode/2D Measurements & Calculations LVIDd: 4.6 cm LVOT diam: 2.0 cm LVIDs: 2.9 cm Ao root diam: 3.0 cm FS: 38.4 % asc Aorta Diam: 3.2 cm IVSd: 0.69 cm Ao Arch Diam (Prox Trans): 1.9 cm LVPWd: 0.68 cm LV flores. diameter/BSA (cm/m^2): 3.0 LV sys. diameter/BSA (cm/m^2): 1.9 LA A2 area: 16.9 cm2 RA long axis: 6.0 cm LA A4 area: 20.7 cm2 RA area: 20.9 cm2 LA length (vol): 5.5 cm RA vol: 61.6 ml LA vol: 53.5 ml RA : 40.5 ml/m2 LA vol index: 35.2 ml/m2 IVC diam: 1.4 cm RVD1 (basal): 3.8 cm TAPSE: 2.8 cm Doppler Measurements & Calculations Ao V2 max: 183.6 cm/sec LVOT Max Peter: 99.0 cm/sec Ao V2 mean: 119.5 cm/sec LV V1 max P.9 mmHg Ao max P.5 mmHg LV V1 VTI: 17.0 cm Ao mean P.7 mmHg GABE(I,D): 1.5 cm2 Ao V2 VTI: 34.3 cm GABE(V,D): 1.7 cm2 sev ratio: 0.50 GABE indexed to BSA (cm^2/m^2): 1.0 MV E max peter: 106.6 cm/sec TR max peter: 270.4 cm/sec MV A max peter: 111.1 cm/sec TR max P.2 mmHg MV E/A: 0.96 PA V2 max: 108.0 cm/sec Med Peak E' Peter: 7.6 cm/sec PA V2 mean: 86.0 cm/sec E/E' med: 14.1 PA mean P.1 mmHg Lat Peak E' Peter: 7.1 cm/sec PA pr(Accel): 43.0 mmHg E/E' lat: 15.0 E/e' average: 14.5 MV dec time: 0.24 sec SV(LVOT): 53.0 ml Reading Physician:02:18 PM
--- NOTE | 2022-12-03 08:28 | PC.NURSE ---
Received report from [employer] RN. Pt resting in room with son at side. AAOx3, SALAMATOF. Neuro exam performed. Pt NIH 0. Son states the mobility on her L side has improved overnight. Swallow assessment obtained and pt without difficulty swallowing water. Diet advanced per Dr Campos. 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 HR 104 ST, 97% RA. Moving all extremities.
--- NOTE | 2022-12-03 08:45 | PC.NURSE ---
MRI safety sheet completed. Pt being taken to MRI at this time.
--- NOTE | 2022-12-03 09:42 | DI.MRI.S_ITS ---
PROCEDURE: MR STROKE Pre- and post-contrast brain MRI, non-contrast brain MR angiogram, pre- and postcontrast neck MR angiogram INDICATIONS: left arm weakness, confusion, pt got dizzy fell TECHNIQUE: Brain: Noncontrast axial T1 spin echo, axial T2 fast spin echo, sagittal and axial FLAIR, coronal T2 fast spin echo, axial gradient echo, axial diffusion and ADC through the brain. After the administration of contrast, axial 3D VIBE of the cranial vasculature and brain. Brain MRA: Non-contrast 3-D time of flight MR angiogram, with multiple tpzqvzj-fnauvbcdi-ovadchuzha (MIP) reformats performed. Neck MRA: Axial and sagittal TruFISP through the neck. Coronal dynamic MR angiogram during administration of contrast in the arterial and venous phases, with 3-dimenstional ddzjzmi-hxiymyfsc-qlitrxinxr (MIP) reformats constructed from subtraction images. COMPARISON: [facility], CT, CT HEAD/BRAIN WO CON, 12/03/2022, 1:51. FINDINGS: Image quality: Excellent. BRAIN: CSF spaces: Ventricles are normal in size and shape. Basal cisterns are patent. No extra-axial fluid collections. Brain: Region of restricted diffusion within the right occipital lobe extending to the temporal lobe in distribution of the right SPEECH LANGUAGE PATHOLOGY ASSISTANT. Corresponding T2/FLAIR edema pattern within this region. No significant midline shift or herniation. Numerous areas of T2/FLAIR hyperintensities throughout the periventricular and subcortical white matter. No intracranial bleeds or mass effects. De La Torre-white matter interface is normal. Brainstem appears normal. Normal intravascular flow voids are present. No abnormal intracranial enhancement. Skull and face: Calvarial marrow signal is normal. Orbits appear normal. Sinuses: Sinuses and mastoids are clear. BRAIN MR ANGIOGRAM: Anterior circulation: Intracranial internal carotid arteries are normal in size and enhancement. The flow within the paired anterior cerebral arteries is normal and symmetric. The flow within the middle cerebral arteries is normal and symmetric. The anterior communicating artery is seen. No stenoses, occlusions, or aneurysms. Posterior circulation: The visualized portions of the vertebral arteries demonstrate normal caliber, and join to form a normal appearing basilar artery. Flow within the right SPEECH LANGUAGE PATHOLOGY ASSISTANT terminates at the P2 segment. Normal flow within the left SPEECH LANGUAGE PATHOLOGY ASSISTANT. NECK MR ANGIOGRAM: Carotids: Great vessels demonstrate a conventional anatomy as they arise from the aortic arch. The origins of the common carotid arteries appear patent. The calibers and courses of both common carotid arteries are normal. The bifurcation regions appear normal bilaterally. The internal carotid arteries demonstrate normal course and caliber. Posterior circulation: The origins of the vertebral arteries appear patent. More superior portions of both vertebral arteries demonstrate normal course and caliber, and join to form a normal appearing basilar artery. There is signal loss at the right P2 segment. The left P2 and P3 segments appear normal. Miscellaneous: Subclavian arteries appear patent. Pre-contrast images through the neck show no soft tissue abnormalities. IMPRESSION: BRAIN MRI: 1. Restricted diffusion consistent with acute right SPEECH LANGUAGE PATHOLOGY ASSISTANT stroke. 2. Sequela of chronic microvascular ischemic disease. BRAIN MR ANGIOGRAM: Occlusion at the right P2 SPEECH LANGUAGE PATHOLOGY ASSISTANT segment NECK MR ANGIOGRAM: Occlusion of the right P2 SPEECH LANGUAGE PATHOLOGY ASSISTANT segment. Dictated by: Josh Quiros M.D. on 12/03/2022 at 8:54 Approved by: Josh Quiros M.D. on 12/03/2022 at 9:04
[2022-12-03] MEDS: ASPIRIN 81 MG CHEW TAB PO (10:14)
[2022-12-03] MEDS: SODIUM CHLORIDE 0.9% 1,000 ML 125 ML IV ×2 (10:14→22:12)
[2022-12-03 10:53] LABS: COVID19 -Nasal RAPID Negative (Negative)
--- NOTE | 2022-12-03 12:31 | P.HP_ITS ---
History of Present Illness History of Present Illness Date Patient Seen: 12/03/22 Time Patient Seen: 16:27 Date of Onset of Symptoms: 11/30/22 Chief complaint: GLF Narrative: This is a very pleasant 87-year-old female who is under the primary care of Dr. Patterson. She was brought to the emergency department for evaluation of being unsteady and had a recent fall. She lives alone here in [facility] and her son came up because he was concerned about her. Paramedics were called on the 01 of December and recommended she go in to be evaluated but she declined. It is possible they gave her something for her pain as she was having back pain and said she had fallen. She then consented to be evaluated and her son brought her into the ER for evaluation last night. 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 It is thought that her symptoms started on . [facility] stroke team was consulted and felt that it was reasonable to admit her for further workup and monitoring however she did not m eet criteria for aggressive treatment. She consented to that. Really her only medical problems have been hypertension. She is on amlodipine and enalapril and previously was on metoprolol but it is unclear why she is off that. She is a very poor historian Past medical history: 1. Hypertension 2. Memory loss unclear etiology 3. Hearing loss 4. 2 normal pregnancies and normal spontaneous vaginal deliveries Medications enalapril 20 mg and amlodipine 5 mg Allergies no known drug allergies Past surgical history: Unremarkable Health related behavior: Never been a smoker does not drink alcohol on a regular basis Social history: Patient is a . She lives by herself in [facility]. She is a daughter who lives in [place] and a son who lives in [place]. 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 No headaches. No chest pain. No lightheadedness or dizziness. No urine symptoms Patient admits that she is not very good with dates [facility] Medical History Atrial tachycardia Cataract Chicken pox Hearing loss Hypertension (1988) Measles Mumps Surgical History No history of previous surgery (08/2014) Family History Child Age: 59 Hypertension Sister Age: 84 Hypertension Cancer Father Lung disease Heart disease Mother Atrial fibrillation Social History marital status: number of children: 2 household members: none lives independently: Yes caregiver/support person: No housing: house pets and animals: No education level: college occupational status: previously employed special payal needs: No leisure activities: sports, exercise, music and reading seatbelt use: always helmet use: Yes water heater temp set < 120 deg: Yes working smoke detector in home: Yes fire extinguisher in home: No carbon monox detector in home: No firearms in home: Yes (unloaded but not locked up) firearms unloaded and lock ed: No do you feel safe at home: Yes Smoking Status: Never smoker second hand exposure: No alcohol intake: current substance use type: does not use Type(s) of exercise: walking, regular exercise and yoga frequency: daily duration: 30-45 minutes/day Meds Home Medications and Allergies Home Medications Medication Instructions Recorded Confirmed Type multivitamin 1 tab PO DAILY ##0 06/25/12 12/03/22 History enalapril maleate 20 mg tablet See Rx Instructions .Route 06/28/22 12/03/22 Rx .COMPLEX #90 tabs amlodipine 5 mg tablet See Rx Instructions .Route 08/16/22 12/03/22 Rx .COMPLEX #90 tabs Allergies Allergy/AdvReac Type Severity Reaction Status Date / Time No Known Drug Allergies Allergy Verified 12/03/22 12:22 Exam Vital Signs (past 8 hours): - 12/03/22 05:00 12/03/22 05:30 12/03/22 07:00 Temperature Pulse Rate 81 82 101 H Respiratory Rate 17 16 24 Blood Pressure Pulse Oximetry 98 97 100 12/03/22 07:30 12/03/22 08:00 12/03/22 08:30 Temperature Pulse Rate 107 H 104 H 103 H Respiratory Rate 19 18 20 Blood Pressure Pulse Oximetry 99 98 97 12/03/22 09:40 12/03/22 10:17 12/03/22 09:39 Temperature 98.3 F 97.5 F L Pulse Rate 82 Respiratory Rate Blood Pressure Pulse Oximetry 96 12/03/22 09:45 12/03/22 09:45 12/03/22 10:00 Temperature Pulse Rate 102 H Respiratory Rate Blood Pressure 139/68 131/70 Pulse Oximetry 96 12/03/22 10:00 12/03/22 10:30 12/03/22 10:30 Temperature Pulse Rate 99 H 90 Respiratory Rate 21 Blood Pressure 122/55 L Pulse Oximetry 97 99 12/03/22 11:00 12/03/22 11:00 12/03/22 11:30 Temperature Pulse Rate 81 Respiratory Rate 22 Blood Pressure 117/82 123/62 Pulse Oximetry 99 12/03/22 11:30 12/03/22 12:00 12/03/22 12:00 Temperature Pulse Rate 81 89 Respiratory Rate 17 15 Blood Pressure 117/58 L Pulse Oximetry 98 97 Oxygen Delivery Method Room Air Narrative Exam Narrative: Very sweet elderly woman who is alert but not oriented to time or place lying comfortably in the hospital bed in no apparent distress HEENT: Mucous membranes moist and pink without any lesions. Good dentition. Left peripheral vision seems decreased. But extraocular muscles are intact. Neck: Supple without adenopathy or thyromegaly or jugular venous distention Chest: Clear to auscultation without wheezes rhonchi or crackles Cor: Regular rate with irregular rhythm and distant S1 t and S2 Abdomen: Positive bowel sounds, soft, nontender, nondistended Extremities: No edema, pulses intact Neurologic exam shows cranial nerves 2-12 are grossly intact. Strength is intact 5/5 in all large muscle groups bilateral upper and lower extremities. I did not get patient up and test her Romberg test her gait. Skin shows no rashes Objective Labs 12/03/22 01:40 12/03/22 01:40 Labs: Laboratory Results - last 24 hr 12/03/22 12/03/22 12/03/22 01:40 01:40 01:40 WBC 7.4 RBC 4.19 Hgb 12.7 Hct 37.3 MCV 89.1 MCH 30.2 MCHC 33.9 RDW 12.7 Plt Count 293 Neut % (Auto) 74.0 Lymph % (Auto) 19.1 L [place] % (Auto) 6.3 Eos % (Auto) 0.2 L Baso % (Auto) 0.4 Neut # (Auto) 5500 Lymph # (Auto) 1400 [place] # (Auto) 500 Eos # (Auto) 0 Baso # (Auto) 0 PT 10.8 INR 0.9 APTT 26 Sodium 133 L Potassium 4.1 Chloride 100 Carbon Dioxide 24 BUN 18 H Creatinine 0.88 Estimated GFR > 60 BUN/Creatinine Ratio 20.5 Glucose 102 Lactate Calcium 9.3 Total Bilirubin 0.6 AST 38 H ALT 28 Alkaline Phosphatase 77 Total Protein 7.3 Albumin 4.6 Globulin 2.7 Albumin/Globulin Ratio 1.7 Lipase 76 U Opiates 300ng/mL cut Ur Oxycodone Screen Urine Methadone Screen Ur Barbiturates Screen U Tricyclic Antidepress Ur Phencyclidine Scrn Ur Amphetamines Screen U Methamphetamines Scrn Ur MDMA Scrn (Ecstasy) U Benzodiazepines Scrn Urine Cocaine Screen U Marijuana (THC) Screen Ethyl Alcohol < 10 SARS-CoV-2 (PCR) 12/03/22 12/03/22 12/03/22 01:40 01:52 10:30 WBC RBC Hgb Hct MCV MCH MCHC RDW Plt Count Neut % (Auto) Lymph % (Auto) [place] % (Auto) Eos % (Auto) Baso % (Auto) Neut # (Auto) Lymph # (Auto) [place] # (Auto) Eos # (Auto) Baso # (Auto) PT INR APTT Sodium Potassium Chloride Carbon Dioxide BUN Creatinine Estimated GFR BUN/Creatinine Ratio Glucose Lactate 1.4 Calcium Total Bilirubin AST ALT Alkaline Phosphatase Total Protein Albumin Globulin Albumin/Globulin Ratio Lipase U Opiates 300ng/mL cut Positive H Ur Oxycodone Screen Negative Urine Methadone Screen Negative Ur Barbiturates Screen Negative U Tricyclic Antidepress Negative Ur Phencyclidine Scrn Negative Ur Amphetamines Screen Negative U Methamphetamines Scrn Negative Ur MDMA Scrn (Ecstasy) Negative U Benzodiazepines Scrn Negative Urine Cocaine Screen Negative U Marijuana (THC) Screen Negative Ethyl Alcohol SARS-CoV-2 (PCR) Negative Assessment & Plan Assessment & Plan narrative: 87-year-old female who is under the primary care of Dr. Marc for hypertension presents to the emergency room via EMS with initially concerns for ground level fall and therefore trauma code was initiated but then discovered that patient had had a 4 day long history confusion and perhaps imbalance. She lives alone so the story is unclear but imaging showed a posterior cerebral artery occlusion. The case was discussed with [facility] who agreed that hospitalization for further workup was indicated but no acute thrombolytics or intervention indicated because patient was outside of the window for this intervention. Her son was present and agreed as well to hospitalization for further evaluation. Assessment 1. CVA with patient currently in AFib with a well-controlled rate. Suspect this is the etiology for CVA. Echo is still pending. Given her cognitive status and living alone I think at this point we will not initiate blood thinners. Plan: MRI/MRA was ordered and pending. Reviewed CT scan etc. showing a posterior cerebral artery blockage. Patient was given aspirin and echo is pending. Patient will be admitted to the hospital for further treatment. Will check lipids in the morning. Will give permissive blood pressure and hold her am lodipine and enalapril for now. She was given a baby aspirin and we will continue this. We will consult discharge planning and PT and OT. At this point there seems to be no difficulty with swallowing. Assessment 2. Her urine tox did show opiates and if there is no evidence of her receiving this in route or in the ER so we will investigate this as well. Thought is this was when she was evaluated for pain the day prior and declined going in to the ER. Assessment 3. Hypertension with current normotensive Plan: Will continue to hold her amlodipine and enalapril for now. Will reassess tomorrow. Assessment 4. Recent fall Plan: No evidence of significant injuries. We will continue to monitor and will work with physical therapy. Hard to say if she was a fall risk prior to CVA but I suspect that she was given her overall appearance in advanced age. Assessment 5. Atrial fibrillation. There is no evidence that she is had AFib in the past. She is a well-controlled rate. She was on metoprolol previously but it is unclear why she was taken off of this. At this point we will hold and monitor her heart rate in initiate if indicated. Assessment 6. Memory impairment. It is unclear if related to opioid ingestion but I suspect that this has been a long-term problem and probably more significant than she has demonstrated. We will continue to monitor and initiate treatment pending how she does. No evidence of infection. Code status is DNR DVT prophylaxis with Lovenox Disposition: Will likely need skilled care facility for PT and OT 75 minutes was spent with patient discussing with physicians, nursing, meeting with patient, reviewing her chart, formulating a plan and documentation
[2022-12-04 04:00] VITALS: BP 121/57; PULSE 67; RESP 15; TEMP 36; O2SAT 97
[2022-12-04 05:39] LABS: Add Manual Diff / Slide Review NO; Basophils Absolute Auto 0 /uL (0-100); Basophils Percent Auto 0.4 % (0-2); Eosinophils Absolute Auto 100 /uL (0-450); Eosinophils Percent Auto 1.2 % (2-4); Hemoglobin 11.6 g/dL (12.0-16.0); Lymphocytes Absolute Auto 900 /uL (1100-4500); Lymphocytes Percent Auto 17.8 % (25-40); Mean Corpuscular HGB Conc 34.1 % (30-36); Mean Corpuscular Hemoglobin 30.3 PG (26-34); Mean Corpuscular Volume 88.9 fL (80-100); Monocytes Absolute Auto 600 /uL (0-900); Monocytes Percent Auto 10.7 % (3-14); Neutrophils Absolute Auto 3600 /uL (1500-7000); Neutrophils Percent Auto 69.9 % (50-75); Platelet Count 212 X10^3/uL (150-400); Red Blood Cell Count 3.82 X10^6/uL (4.0-5.2); Red Cell Distribution Width 12.9 % (11.6-14.8); White Blood Cell Count 5.2 X10^3/uL (4.5-11.0)
[2022-12-04 05:57] LABS: Cholesterol 170 mg/dL (140-199); HDL Cholesterol 67 mg/dL (40-60); LDL Cholesterol Calculated 95 mg/dL (<100); Triglycerides 38 mg/dL (35-150)
[2022-12-04 05:58] LABS: Alanine Aminotransferase 20 IU/L (<35); Albumin 3.2 g/dL (3.5-5.0); Albumin Globulin Ratio 1.3 (1.0-2.8); Alkaline Phosphatase 52 U/L (38-126); Aspartate Aminotransferase 27 IU/L (14-36); BUN Creatinine Ratio 21.1 (6-22); Bilirubin Total 0.6 mg/dL (0.2-1.3); Blood Urea Nitrogen 15 mg/dL (7-17); Calcium 8.2 mg/dL (8.4-10.2); Carbon Dioxide 24 mmol/L (22-32); Chloride 106 mmol/L (98-107); Estimated Glomerular Filt Rate > 60 mL/min (>60); Globulin 2.5 g/dL (1.7-4.1); Glucose 92 mg/dL (80-110); HEMOLYSIS < 15 (0-50); Sodium 134 mmol/L (137-145); Total Protein 5.7 g/dL (6.3-8.2)
[2022-12-04 07:00] VITALS: BP 140/71; PULSE 87; RESP 17; TEMP 36.8; O2SAT 97
--- NOTE | 2022-12-04 09:14 | PM.PN.1 ---
Subjective Subjective Date Patient Seen: 12/04/22 Interval history: The pt is upset this morning to know that she had a CVA. She denies any specific concerns, however. Reviewed the pts admission with the admitting provider, patient, and her son today. He feels that she is unable to see out her left eye, and is much more confused than previously. She denies any issues with swallowing. Exam Vital Signs (past 8 hours): - 12/04/22 04:00 12/04/22 07:00 Temperature 96.8 F L 98.2 F Pulse Rate 67 87 Respiratory Rate 15 17 Blood Pressure 121/57 L 140/71 Pulse Oximetry 97 97 Oxygen Flow Rate 0 0 Oxygen Delivery Method Room Air Oxygen Flow Rate 0 Narrative Exam Narrative: Gen: NAD, sitting comfortably in bed, appears well CV: irregularly irregular rhythm, normal rate, grade 2/6 systolic murmur Resp: clear to auscultation bilaterally Abd: soft, nontender, nondistended Ext: on edema Neuro: oriented to person, place but not time; left sided visual neglect present Objective Labs 12/04/22 05:18 12/04/22 05:18 Labs: Laboratory Results - last 24 hr 12/03/22 12/04/22 12/04/22 10:30 05:18 05:18 WBC 5.2 RBC 3.82 L Hgb 11.6 L Hct 34.0 L MCV 88.9 MCH 30.3 MCHC 34.1 RDW 12.9 Plt Count 212 Neut % (Auto) 69.9 Lymph % (Auto) 17.8 L [place] % (Auto) 10.7 Eos % (Auto) 1.2 L Baso % (Auto) 0.4 Neut # (Auto) 3600 Lymph # (Auto) 900 L [place] # (Auto) 600 Eos # (Auto) 100 Baso # (Auto) 0 Sodium Potassium Chloride Carbon Dioxide BUN Creatinine Estimated GFR BUN/Creatinine Ratio Glucose Calcium Total Bilirubin AST ALT Alkaline Phosphatase Total Protein Albumin Globulin Albumin/Globulin Ratio Triglycerides 38 Cholesterol 170 LDL Cholesterol, Calc 95 HDL Cholesterol 67 H SARS-CoV-2 (PCR) Negative 12/04/22 05:18 WBC RBC Hgb Hct MCV MCH MCHC RDW Plt Count Neut % (Auto) Lymph % (Auto) [place] % (Auto) Eos % (Auto) Baso % (Auto) Neut # (Auto) Lymph # (Auto) [place] # (Auto) Eos # (Auto) Baso # (Auto) Sodium 134 L Potassium 4.0 Chloride 106 Carbon Dioxide 24 BUN 15 Creatinine 0.71 Estimated GFR > 60 BUN/Creatinine Ratio 21.1 Glucose 92 Calcium 8.2 L Total Bilirubin 0.6 AST 27 ALT 20 Alkaline Phosphatase 52 Total Protein 5.7 L Albumin 3.2 L Globulin 2.5 Albumin/Globulin Ratio 1.3 Triglycerides Cholesterol LDL Cholesterol, Calc HDL Cholesterol SARS-CoV-2 (PCR) PFSH Medical History Atrial tachycardia Cataract Chicken pox Hearing loss Hypertension (1988) Measles Mumps Surgical History No history of previous surgery (08/2014) Family History Child Age: 59 Hypertension Sister Age: 84 Hypertension Cancer Father Lung disease Heart disease Mother Atrial fibrillation Social History marital status: number of children: 2 household members: none lives independently: Yes caregiver/support person: No housing: house pets and animals: No education level: college occupational status: previously employed special payal needs: No leisure activities: sports, exercise, music and reading seatbelt use: always helmet use: Yes water heater temp set < 120 deg: Yes working smoke detector in home: Yes fire extinguisher in home: No carbon monox detector in home: No firearms in home: Yes (unloaded but not locked up) firearms unloaded and locked: No do you feel safe at home: Yes Smoking Status: Never smoker second hand exposure: No alcohol intake: current substance use type: does not use Type(s) of exercise: walking, regular exercise and yoga frequency: daily duration: 30-45 minutes/day Assessment & Plan Assessment & Plan narrative: Pt is a 87yo woman with HTN who presented with ground level fall, confusion, and balance issues. Imaging showed acute right [employer] stroke. 1) CVA: Echo completed without any causative findings. MRI/MRA confirmatory. Pt with worsened cognition, balance, and visual field deficits. - Start Atorvastatin 10mg daily - PT/OT/speech consulted - Hold home antihypertensives, pt not currently hypertensive anyway but would allow for permissive HTN 2) Atrial fibrillation: New diagnosis, rate controlled off medications. - Discussed potential anticoagulation, however pt is high risk of falls and do not recommend. Will continue to discuss. - Continue Telemetry 3) HTN: Currently normotensive - Hold antihypertensives as above 4) Ground level fall: No significant injuries. - PT as above 5) Cognitive decline: Acute on chronic. Likely worsened from CVA. - Frequent reorientation Code: DNR FEN: General diet DVT ppx: Lovenox Dispo: Pt requires evaluation by PT/OT for placement. Will require SNF/rehab. Care management aware. Quality VTE Deep Vein Thrombosis/Pulmonary Embolism Present on Admission: No
[2022-12-04] MEDS: ASPIRIN 81 MG CHEW TAB PO (09:48)
[2022-12-04] MEDS: ENOXAPARIN 40 MG/0.4 ML SYRINGE SUBCUT (09:48)
--- NOTE | 2022-12-04 09:50 | PT.IIE ---
Current Diagnoses Cerebral infarction, unspecified (12/03/22) Surgical History (Last Reviewed 12/03/22 @ 12:32 by Sharon Carlin MD) No history of previous surgery (08/2014) Medical History (Last Reviewed 12/03/22 @ 12:31 by Sharon Carlin MD) Atrial tachycardia Cataract Chicken pox Hearing loss Hypertension (1988) Measles Mumps Physical Therapy Inpatient Evaluation/Re-Eval M1 PT/OT-IP Prior Functional Status Start: 12/04/22 08:51 Freq: NEEDED Status: Active Protocol: Document 12/04/22 11:25 CGR (Rec: 12/04/22 11:47 CGR [id number]) Medical Review Prior Functional Status Medical History Reviewed Yes Communication WNL. Pt is an effective verbal communicator at baseline. 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 Mobility and Gait Independent in all regards. At an outpatient PT assessment in July of this year, she scored 55/56 on Lerma Balance and 20/24 on Dynamic Gait Index. Pt stays active with yoga, balance exercises, and regular walking Activities of Daily Living and IADL's Independent in all regards. Pt managee her own medications and finances. She was independent with driving Social History Household Members none Living Arrangements House Number of Floors (Floors) One Floor Number of Stairs To Enter/Railing? 2 SANTY with rails Home Environment Standard Height Toilet,Walk in Shower Home Equipment Front Wheel Walker,Straight Cane,Grab Bars In Shower Employment Status Retired Additional Social History Comment Pt lives alone in [place]. She has a son in [place], [place], and a daugther in [place]. M2 PT-IP Current Condition Start: 12/04/22 08:51 Freq: NEEDED Status: Active Protocol: Document 12/04/22 09:50 AW (Rec: 12/04/22 10:57 AW [id number]) Physical Therapy Current Condition Current Condition Evaluation Date 12/04/22 Treatment Diagnosis CVA (R TYPISTS SUPERVISOR); impaired vision, balance, and gait Onset Date 12/02/22 M3 PT-IP Subjective Start: 12/04/22 08:51 Freq: NEEDED Status: Active Protocol: Document 12/04/22 09:50 AW (Rec: 12/04/22 10:57 AW [id number]) Subjective Physical Therapy Visit Type Type Initial Evaluation Visit Start Time 09:15 Visit Stop Time 09:50 Total Visit Minutes 35 Physical Therapy Visit Comments Patient Comments Pt is willing to participate with PT. She notes her balance has been off and she is concerned about some apparent loss of vision. Patient Goals To remain as independent as possible. Therapy Pain Assessment Pain When Pain Assessed During Mobility Pain Present Pain Present Denied Pain M4 PT-IP Mobility and Gait Start: 12/04/22 08:51 Freq: NEEDED Status: Active Protocol: Document 12/04/22 09:50 AW (Rec: 12/04/22 11:27 AW [id number]) PT-Bed Mobility Assessment Supine to Sit Supine to Sit Independent Sit to Supine Sit to Supine Independent Scooting Scooting to Edge of Bed Independent PT-Transfer Assessment Sit to and From Stand Sit to and from Stand Contact Guard Assistance Equipment Transfer Assistive Device None,Gait Belt,Front Wheeled Walker Orthotic/Prosthetic Devices or Brace: No Transfers Transfer Destination Bed,Chair Transfer Technique Stand Step Pivot Transfer Ability Level of Assist Contact Guard Assistance Comments Mobility Comments Pt was lying in bed as PT arrived. BP at rest at 137/61 HR 86. Pt demonstrated independent bed mobility but was markedly unstable transitioning sit to stand. She walked 5 feet to the sink without AD, requiring constant CGA for stability. Pt transferred to the chair CGA. She stood again and used FWW to ambulate 120 feet, requiring no more than SBA. See gait section for assessment. On return to the room, she sat EOB where she was left as care transitioned to nursing. Gait Assessment Gait Gait Assistance Required: Standby Assistance,Contact Guard Assist Distance (Feet) 120 Assistive Devices Assistive Device None,Gait Belt,Front Wheeled Walker Orthotic/Prosthetic Devices or Brace: No Gait Deviations General Gait Pattern Ataxic,Decreased Stride Length ,Decreased Feet Clearance, Narrow Based Gait Factors Limiting Gait Function Factors Limiting Gait Function Decreased Sensation, Incoordination,Poor Balance Comments Gait Comments Gait with and without AD was notable for flat foot at initial contact, shortened step lengths (improved with distance while using FWW), and NBOS. Foot placement was slightly inconsistent even with FWW but certainly much more pronounced without AD. Pt did have good navigational skills and was able to move safely around obstacles in her path but she veered to the right several times. For comparison, pt used no AD 4 months ago and scored 20/24 on Dynamic Gait Index. Stair Climbing Assessment Comments Stair Climbing Comments Not assessed. PT-Balance Assessment Sitting Balance and Reactions Static Sitting Balance Ability Normal Dynamic Sitting Balance Ability Good Standing Balance and Reactions Static Standing Balance Ability Fair Dynamic Standing Balance Ability Poor Device Used Without AD. Dynamic balance improves with FWW. Functional Assessments Functional Tests Dynamic Gait Index 07/22 Other Functional Tests Performed Single points deducted for gait level surface, change in speed, pivot turn, step around obstacles, and stairs. Double points deducted for head turns (horizontal and vertical ) and stepping over obstacle. M5 PT-IP Objective Assessments Start: 12/04/22 08:51 Freq: NEEDED Status: Active Protocol: Document 12/04/22 09:50 AW (Rec: 12/04/22 11:27 AW [id number]) Orientation Orientation/Cognition Level of Alertness Alert Orientation Name,Day of Week,Place, Situation Language Function Ability No Deficits Noted Safety Awareness Understands Safety Issues Memory Description No Deficits Noted Gross Range of Motion Upper Extremity ROM Assessment Within Functional Limits Lower Extremity ROM Assessment Within Functional Limits Strength Upper Extremity Strength Assessment Within Functional Limits Lower Extremity Strength Assessment Within Functional Limits Hip flexion 4+/5 Knee grossly 5/5 Ankle 5/5 DF Comments Strength Comments No unilateral deficit on LE strength. Coordination Assessment Assessment Finger to Nose Test Minimal Impairment Pronation/Supination Test Normal Performance Foot Tapping Test Normal Performance Heel on Raines Test Normal Performance Coordination Comments Missed targets ~1 cm with LUE during finger to nose. Sensation Assessment Sensation Gross Sensation Right LE Impaired,Left LE Impaired Light Touch Impaired Proprioception (Position) Impaired Comments Sensation Comments Pt has chronic peripheral neuropathy affecting BLE but right side is typically more affected. Proprioception deficits appear to be new. 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 Ocular motor screen was affected as pt would lose track of the target as it moved from right toward the left. Saccades were WNL to the right but impaired to the left. No phoria was observed. 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 M6 PT-IP Treatment Start: 12/04/22 08:51 Freq: NEEDED Status: Active Protocol: Document 12/04/22 09:50 AW (Rec: 12/04/22 11:27 AW [id number]) Physical Therapy Treatment Education Education Provided Safety M7 PT-IP Assessment and Plan Start: 12/04/22 08:51 Freq: NEEDED Status: Active Protocol: Document 12/04/22 09:50 AW (Rec: 12/04/22 11:27 AW [id number]) PT Summary Assessment and Plan Potential Rehabilitation Potential Good Status of Condition at Evaluation Stable Summary Impairments Balance,Coordination,Transfers ,Gait Assessment Summary Aggie is an 87 yo woman admitted with concern for unusual falls and confusion. Stroke protocol was activated. 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 Pt is independent in all regards at baseline. She lives alone, walks without assistive device , and stays active with walking, yoga, and balance exercises. She was referred to outpatient PT four months ago but scored 55/56 on Lerma Balance Scale and 20/24 on Dynamic Gait Index, indicating no need for therapy services. She presents today with left homonymous hemianopsia which is affecting her balance and gait. Dynamic Gait Index today is 12/24 primarily due to need for assistive device. Gait without AD demonstrated narrow base of support and inconsistent foot placement which placed pt at higher risk of falls. Pt has a solid prior level of function and has no signs of unusual fatigue which would interfere with the dosing of an inpatient acute rehab setting. PT recommends acute rehab. Goals Bed Mobility Goal Independent Transfer Goal Independent,Front Wheeled Walker Gait Goal Independent,Front Wheel Walker Gait Distance 400 Other Goals - Up/down 2 steps with single rail and modified independence - Improve transfers and gait to mod I with LRAD - Pt to score 19/24 on Dynamic Gait to demonstrate decreased falls risk Days to Meet Goals 10 Frequency of Treatment Frequency Of Treatment Twice a Day Treatment Plan Physical Therapy Treatment Plan Transfer Training,Gait Training,Therapeutic Exercise, Balance Retraining,Discharge Planning,Neuromuscular Re-ed, Coordination Retraining Precautions Other Precautions falls risk Recommendations To Nursing Amount of Assist Needed 1 Person Assist Discharge Recommendations PT Discharge Recommendations Acute Rehab Transportation Needs at Discharge Private Vehicle
--- NOTE | 2022-12-04 10:51 | PC.NURSE ---
Patient given a shower, she is now back to bed. Son in room. He was skeptical about patient having her lovenox as her and talked about other blood thinners. Called the Doctor and she did want patient to have the lovenox. This was given in her lower abdomen. Patients NIH scale a 4. She is having a hard time reading and seeing out of her left eye. Her peripheral vision seems to have been effected by the CVA. She was unable to see how many fingures that I was showing her from that left side. She was able to see things out of her r.eye. Everthing else is normal for patient. She is not having a hard time reading just seeing the words. Her smile is symmetrical and denies pain at this time. She has ivf infusing at this time.
[2022-12-04] MEDS: SODIUM CHLORIDE 0.9% 1,000 ML 125 ML IV (11:00)
--- NOTE | 2022-12-04 11:20 | OT.IP.EVAL ---
Current Diagnoses Cerebral infarction, unspecified (12/03/22) Past Medical History (Last Reviewed 12/03/22 @ 12:31 by Sharon Carlin MD) Atrial tachycardia Cataract Chicken pox Hearing loss Hypertension (1988) Measles Mumps Surgical History (Last Reviewed 12/03/22 @ 12:32 by Sharon Carlin MD) No history of previous surgery (08/2014) Occupational Therapy Inpatient Evaluation/Re-Eval M1 PT/OT-IP Prior Functional Status Start: 12/04/22 08:51 Freq: NEEDED Status: Active Protocol: Document 12/04/22 11:25 CGR (Rec: 12/04/22 11:47 CGR [id number]) Medical Review Prior Functional Status Medical History Reviewed Yes Communication WNL. Pt is an effective verbal communicator at baseline. 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 Mobility and Gait Independent in all regards. At an outpatient PT assessment in July of this year, she scored 55/56 on Lerma Balance and 20/24 on Dynamic Gait Index. Pt stays active with yoga, balance exercises, and regular walking Activities of Daily Living and IADL's Independent in all regards. Pt managee her own medications and finances. She was independent with driving Social History Household Members none Living Arrangements House Number of Floors (Floors) One Floor Number of Stairs To Enter/Railing? 2 SANTY with rails Home Environment Standard Height Toilet,Walk in Shower Home Equipment Front Wheel Walker,Straight Cane,Grab Bars In Shower Employment Status Retired Additional Social History Comment Pt lives alone in [place]. She has a son in [place], [place], and a daugther in [place]. M2 OT-IP Current Condition Start: 12/04/22 11:25 Freq: Status: Active Protocol: Document 12/04/22 11:25 CGR (Rec: 12/04/22 11:47 CGR [id number]) Occupational Therapy Current Condition Current Condition Evaluation Date 12/04/22 Treatment Diagnosis recent fall, posterior cerebral artery occuluaion Diagnosis Onset Date 12/03/22 M3 OT- IP Subjective and Pain Start: 12/04/22 11:25 Freq: Status: Active Protocol: Document 12/04/22 11:25 CGR (Rec: 12/04/22 11:47 CGR [id number]) OT- Subjective Occupational Therapy Visit Type Type Initial Evaluation Visit Start Time 10:27 Visit Stop Time 11:20 Total Visit Minutes 53 OT Pain Assessment Pain When Pain Assessed At Rest Pain Present Pain Present Denied Pain M4 OT- IP ADL's Start: 12/04/22 11:25 Freq: Status: Active Protocol: Document 12/04/22 11:25 CGR (Rec: 12/04/22 11:47 CGR [id number]) OT [id number] Comments OT Self-Feeding Comments not meal time OT ADL-Grooming General Evaluation Grooming Ability Standby Assistance Areas Needing Assistance Retrieving/Set-up of Grooming Items,Face Washing Comments OT Grooming Comments standing at sink OT ADL-Oral Care General Eval Oral Care Ability Standby Assistance Areas of Assistance Brushing Teeth,Retrieving/Set- Up of Items Comments Oral Care Comments standing at sink OT ADL-Dressing General Eval Lower Body Dressing Ability Independent Areas Needing Assistance Socks Comments OT Dressing Comments seated EOB OT ADL-Toileting General Evaluation Toileting Ability Independent Comments OT Toileting Comments simulated seated on toilet OT ADL-Bathing Comments OT Bathing Comments Just performed with nursing. M5 OT- IP IADL's Start: 12/04/22 11:25 Freq: Status: Active Protocol: Document 12/04/22 11:25 CGR (Rec: 12/04/22 11:47 CGR [id number]) OT-Instrumental Activities of Daily Living Deficits IADL Deficits Identified Deficits Home Safety Awareness Awareness of Need for Assistance at Home Decreased Awareness Ability to Problem Solve Emergency Unable to Problem Solve Situations Medication Management Medication Management Comments Concerns regarding pt's ability to manage IND at this time Money Management Money Management Comments Concerns regarding pt's ability to manage IND at this time Meal Preparation Meal Preparation Comments Concerns regarding pt's ability to manage IND at this time Library Director Library Director Comments Concerns regarding pt's ability to manage IND at this time Driving Driving Comments Discussed at length with pt that she is no longer safe to drive given her L visual field deficit. M6 OT- IP Functional Cognition Start: 12/04/22 11:25 Freq: Status: Active Protocol: Document 12/04/22 11:25 CGR (Rec: 12/04/22 11:47 CGR [id number]) Cognitive Factors Limiting Selfcare Function Cognitive Ability Level of Alertness Alert Patient Orientation Name,Age,Birthday,Month,Year, Place,Situation Attention Span Ability Capable of Focused Attention, Capable of Sustained Attention Ability to Follow Commands Able to Follow One Step Commands with Increased Time, Able to Follow One Step Commands with Repetition Cognitive Tests SLUMS Pt participated in the SLUMS . Pt scored 18/30. Pt missed: Day of the week year all 5 objects as part of short term memory simple addition and subtraction Pt was able to state 12 animals in one minute, and convert numbers backwards for a 3 set but not a 4 set. She was able to complete the clock and raymond the time correctly. She identified the largest object (after being reminded to scan left) and put an X in the triangle. She was able to answer all 4 of the listening comprehension questions. See scan of her examination in her chart, to be scanned into her medical record. Cognitive Comments Cognitive Assessment Comments Pt demonstrates poor short term memory. Son notes that this is worse than her typical . OT- Vision and Hearing OT- Hearing Assessment OT- Hearing Assessment Hearing Impaired,Use of Hearing Aids OT- Vision Assessment Visual Acuity Glasses All The Time Visual Attentiveness WFL Occular Pursuits WFL Visual Convergence WFL Visual Morgan Impaired Vision Assessment Comments Pt is missing her L visual field. Pt wears bifocals. M7 OT- IP Mobility and Balance Start: 12/04/22 11:25 Freq: Status: Active Protocol: Document 12/04/22 11:25 CGR (Rec: 12/04/22 11:47 CGR [id number]) OT- Bed Mobility Assessment Supine to Sit Supine to Sit Assist Standby Assistance Scooting Scooting to Edge of Bed Standby Assistance OT-Transfer Assessment Sit to and From Stand Sit to and from Stand Standby Assistance Transfers Transfer Ability Standby Assistance Technique Transfer Destination Bed,Chair,Toilet Transfer Technique Stand Step Pivot Devices Transfer Assistive Devices Gait Belt,Front Wheeled Walker Comments Mobility Comments Pt ambulated around the room with FWW and SBA. Pt needs vc for safety at times with the use of the walker. OT- Gait Assessment Comments Gait Ability Comments see P.T. note for more detailed information. OT- Balance Assessment Sitting Balance and Reactions Static Sitting Balance Ability Good Dynamic Sitting Balance Ability Good M8 OT- IP Objective Assessments Start: 12/04/22 11:25 Freq: Status: Active Protocol: Document 12/04/22 11:25 CGR (Rec: 12/04/22 11:47 CGR [id number]) OT Gross Range of Motion Upper Extremity Range of Motion Assessment Within Functional Limits OT Strength Upper Extremity Strength Assessment Within Functional Limits Comments Strength Comments Of note, pt states her back hurt when testing shlds. Grossly 4-/5 throughout OT- Coordination Assessment Upper Extremity Finger to Nose Test Within Functional Limits Finger Tapping Test Within Functional Limits OT-Muscle Tone Assessment Muscle Tone WNL Yes OT Sensation Assessment Edema Edema Absent M9 OT- IP Assessment and Plan Start: 12/04/22 11:25 Freq: Status: Active Protocol: Document 12/04/22 11:25 CGR (Rec: 12/04/22 11:47 CGR [id number]) OT Summary Assessment and Plan Potential Rehabilitation Potential Excellent Analytic Complexity at Evaluation Moderate Summary OT Impairments Pain,Strength,Balance, Functional Cognition, Functional Mobility,Bathing, Toilet Transfers,Shower Transfers,Activity Tolerance Progress Towards Goals Progressing Toward Goals Assessment Summary Pt presents as a moderate complexity evaluation s/p admit for CVA and recent fall. Pt with declines to cognition , functional mobility, balance , and vision that are impacting her ability to continue to live IND. Pt's son present in the room throughout session. Pt is an excellent candidate for acute INPT rehab services. Pt's son states that they are going to work on a suitable living situation likely in a continuing care facility but that the pt will not continue living IND in her own home. They understand that the pt is not able to safely drive missing her L visual field. Recommendation is for acute rehab. Goals Dressing Goal Independent Toileting Goal Independent Bathing Goal Independent Toilet Transfer Goal Independent Shower Transfer Goal Independent OT-Other Goals Pt will demonstrate visual scanning to visualize her surroundings 90% of the time with mobility and ADLs. Days to Meet Goals 20 Frequency of Treatment Frequency Of Treatment Once a Day Treatment Plan OT Treatment Plan ADL Training,Functional Cognition Training,Functional Mobility,Vision Retraining, Patient/Family Education, Discharge Planning Other Treatment Recommendations and Next vision scanning assessment, Treatment Focus visual training. Discharge Recommendations OT Discharge Recommendations Acute Rehab Transportation Needs at Discharge Private Vehicle
[2022-12-04 12:00] VITALS: BP 134/62; PULSE 62; RESP 17; TEMP 36.2; O2SAT 97
--- NOTE | 2022-12-04 12:19 | CM.DANOTE ---
DCP Assessment: She is an 87yo female. Admitted INPT status on 12/03/22. Current Diagnosis: Stroke. Patient PCP is Dr. Patterson. Primary Payer: 1) Medicare 2) [employer]. This author and BURT Cannon entered room and communicated role. This author observed while Michelle Dorado primarily lead the interaction. Patient was A/O and accompanied by sonAbdlerahman. PT/OT evaluations completed and acute rehabilitation recommended. COLD ROLLING SUPERVISOR discussed both acute rehab and SNF option for d/c. Patient made aware of recommendation and would like to pursue acute rehab 1st choice is [facility] 2) [facility] in [place]. Son asked questions regarding insurance and details with acute rehab facility. Patient and son would like to wait for daughter's arrival later this evening to solidify concrete plans. Family appears active/involved with support and care. Family appears interested in cabulance to transport patient to acute rehab facility. COLD ROLLING SUPERVISOR assessed for baseline ADLs. Patient and son reported that patient was primarily independent with all ADLs prior to admit. 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 Patient reports no use of cane or walker at baseline. Patient drives on regular basis and has not needed much in regards to community resources or family support. However, family very involved and daughter arriving in [place] this afternoon. Patient reports both son and daughter are her decision maker's if needed. COLD ROLLING SUPERVISOR contacted [facility], spoke with Cherelle in admissions. She confirms that they do have female bed and can accept tomorrow if patient qualifies. COLD ROLLING SUPERVISOR requested CROSSING WATCHMAN/Mirlande send clinicals to [facility] for review. Per Cherelle we should have answer within the next few hours. Plan: Pending, [facility] acute rehab evaluating for admit. If declined patient will most likely need to go to lower level (SNF). BURT Cannon MSW Discharge Planning/Care Management CM Discharge Assessment Start: 12/04/22 11:16 Freq: Status: Active Protocol: Document 12/04/22 12:05 (Rec: 12/04/22 12:19 [id number]) Discharge Planning Assessment Assigned Benzene Still Utility Operator BURT Sarmiento DPOA/Assigned Designee Name Abdelrahman Forbes and Vickie Forbes Contact Information Abdelrahman (son [phone]) Vickie (daughter [phone] ) Advance Directives? Yes Advance Directives on File Yes History Provided By Patient,Family Member,Medical Record Expected Length of Stay 1 Prior Living Arrangements House Comment Independent with ADLs. Household Members none Type of transporation used prior to Drives own vehicle admit Independent with ADL's Yes Is patient alert and oriented? Yes Comment Previously utilized assistance for yard maintenance. Plans to continue post discharge. Caregiver for Another No Comment Acute OP/PT rehab facility. Anticipate [facility] with [facility] in [facility] Barriers to Discharge No Discharge Plan Inpatient Rehab Unit Transportation Arrangement Family agreeable to pay for cabulance to acute rehab facility. Referrals Initiated Other Additional Comment Referrals sent to [facility]. Cherelle Lujan is contact Inpatient Status as of 12/03/22 Whiteboard Updated in Patient Room with Yes name and ext. # of Benzene Still Utility Operator Review Status In Process Next Review Type Continued Stay Review
--- NOTE | 2022-12-04 13:35 | PT.IPTN ---
Current Diagnoses Cerebral infarction, unspecified (12/03/22) Physical Therapy Treatment Note M2 PT-IP Current Condition Start: 12/04/22 08:51 Freq: NEEDED Status: Active Protocol: Document 12/04/22 09:50 AW (Rec: 12/04/22 10:57 AW [id number]) Physical Therapy Current Condition Current Condition Evaluation Date 12/04/22 Treatment Diagnosis CVA (R INDUSTRIAL EDITOR); impaired vision, balance, and gait Onset Date 12/02/22 M3 PT-IP Subjective Start: 12/04/22 08:51 Freq: NEEDED Status: Active Protocol: Document 12/04/22 14:16 TS (Rec: 12/04/22 14:42 TS [id number]) Subjective Physical Therapy Visit Type Type Treatment Note Visit Start Time 13:35 Visit Stop Time 14:15 Total Visit Minutes 40 Number of REFRIGERATION PLANT CORK INSULATOR Visits 1 Physical Therapy Visit Comments Patient Comments Pt found resting in chair, son in room, she is motivated to work with PT. Patient Goals To remain as independent as possible. M4 PT-IP Mobility and Gait Start: 12/04/22 08:51 Freq: NEEDED Status: Active Protocol: Document 12/04/22 14:16 TS (Rec: 12/04/22 14:42 TS [id number]) PT-Transfer Assessment Sit to and From Stand Sit to and from Stand Standby Assistance,Contact Guard Assistance Equipment Transfer Assistive Device None,Gait Belt,Front Wheeled Walker Orthotic/Prosthetic Devices or Brace: No Comments Mobility Comments Pt found resting in chair, agreeable to PT session. Pt performed COOPER Balance Scale, score 44/56. She required Volodymyr with alternating steps on stool and for reaching forward with outstretched arms. Sit to stands x5 SBA with minimal use of UEs and no AD. She ambulated in hallway SBA ~200' with step thru gait, no buckling or LOB. Pt was left in chair with son in room, call light nearby, chair alarm on. Gait Assessment Gait Gait Assistance Required: Standby Assistance Distance (Feet) 200 Assistive Devices Assistive Device None,Gait Belt,Front Wheeled Walker Orthotic/Prosthetic Devices or Brace: No Gait Deviations General Gait Pattern Ataxic,Decreased Stride Length ,Decreased Feet Clearance, Narrow Based Gait Factors Limiting Gait Function Factors Limiting Gait Function Decreased Sensation, Incoordination,Poor Balance Comments Gait Comments Pt ambulated with FWW ~200 SBA with step thru gait, some swaying in FWW but managed around obstacles, limited veering to right. PT-Balance Assessment Sitting Balance and Reactions Static Sitting Balance Ability Normal Dynamic Sitting Balance Ability Good Standing Balance and Reactions Static Standing Balance Ability Fair Dynamic Standing Balance Ability Poor Device Used without AD. Balance Tests Cooper Balance Test Score 44/56 Comments Other Balance Tests/Deviations/Treatment Pt requires extra assistance : with reaching forward, 3 points deducted and Volodymyr for alternating foot steps on step stool, 3 points deducted. Two points deducted for turning 360 degrees due to slowness. M5 PT-IP Objective Assessments Start: 12/04/22 08:51 Freq: NEEDED Status: Active Protocol: Document 12/04/22 09:50 AW (Rec: 12/04/22 11:27 AW [id number]) Orientation Orientation/Cognition Level of Alertness Alert Orientation Name,Day of Week,Place, Situation Language Function Ability No Deficits Noted Safety Awareness Understands Safety Issues Memory Description No Deficits Noted Gross Range of Motion Upper Extremity ROM Assessment Within Functional Limits Lower Extremity ROM Assessment Within Functional Limits Strength Upper Extremity Strength Assessment Within Functional Limits Lower Extremity Strength Assessment Within Functional Limits Hip flexion 4+/5 Knee grossly 5/5 Ankle 5/5 DF Comments Strength Comments No unilateral deficit on LE strength. Coordination Assessment Assessment Finger to Nose Test Minimal Impairment Pronation/Supination Test Normal Performance Foot Tapping Test Normal Performance Heel on Raines Test Normal Performance Coordination Comments Missed targets ~1 cm with LUE during finger to nose. Sensation Assessment Sensation Gross Sensation Right LE Impaired,Left LE Impaired Light Touch Impaired Proprioception (Position) Impaired Comments Sensation Comments Pt has chronic peripheral neuropathy affecting BLE but right side is typically more affected. Proprioception deficits appear to be new. 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 Ocular motor screen was affected as pt would lose track of the target as it moved from right toward the left. Saccades were WNL to the right but impaired to the left. No phoria was observed. 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 M6 PT-IP Treatment Start: 12/04/22 08:51 Freq: NEEDED Status: Active Protocol: Document 12/04/22 14:16 TS (Rec: 05/08/23 14:42 TS [id number]) Physical Therapy Treatment Education Education Provided Safety M7 PT-IP Assessment and Plan Start: 12/04/22 08:51 Freq: NEEDED Status: Active Protocol: Document 12/04/22 14:16 TS (Rec: 12/04/22 14:42 TS [id number]) PT Summary Assessment and Plan Potential Rehabilitation Potential Good Status of Condition at Evaluation Stable Summary Impairments Balance,Coordination,Transfers ,Gait Assessment Summary Pt scored 44/56 on COOPER Balance Scale. Deducted 3 points for reaching forward with outstretched arms and alternating foot steps on step stool, deducted 2 points for slow turns during 360 turn. Pt performed sit to stands x5 with no AD SBA/CGA with minimal hand use, slightly unsteady coming into standing. She progressed her ambulation to 200' with FWW, demonstrated good navigation around objects, continues to slighlty veer right. PT recommends acute rehab to progress balance, strength and gait. Aggie is very motivated to improve and prior to hospital stay was very active. Goals Bed Mobility Goal Independent Transfer Goal Independent,Front Wheeled Walker Gait Goal Independent,Front Wheel Walker Gait Distance 400 Other Goals - Up/down 2 steps with single rail and modified independence - Improve transfers and gait to mod I with LRAD - Pt to score 19/24 on Dynamic Gait to demonstrate decreased falls risk Days to Meet Goals 10 Frequency of Treatment Frequency Of Treatment Twice a Day Treatment Plan Physical Therapy Treatment Plan Transfer Training,Gait Training,Therapeutic Exercise, Balance Retraining,Discharge Planning,Neuromuscular Re-ed, Coordination Retraining Precautions Other Precautions falls risk Recommendations To Nursing Amount of Assist Needed Standby Assistance,1 Person Assist Discharge Recommendations PT Discharge Recommendations Acute Rehab Transportation Needs at Discharge Private Vehicle
--- NOTE | 2022-12-04 13:52 | CM.DPNOTE ---
Michelle requested [facility] for 1300 for Tues., 12/05/22. I spoke to Zachary at [facility] who said he could arrange that and spoke to his coworker, Adilene, who confirmed it. I told him pt. did not have their own wheelchair. I also told him patient's son, Abdelrahman will be call to give payment of what Zachary quoted me $161.72. Mirlande Elizondo, Weekend Receptionist.
--- NOTE | 2022-12-04 13:58 | CM.DPC ---
DCP: COOLER DELIVERER spoke with Cherelle Awan at [facility]. Cherelle reports that patient was approved for acceptance. Reports Dr. Rosa Tomlin will be accepting provider. Cherelle requested nursing report tomorrow morning at . COOLER DELIVERER informed patient and son of the plan. Reported to family that transportation, [facility], would be set up for patient at 1pm tomorrow, 12/05/22. Reported to son approximate duenas. Son will call transportation to make payment. COOLER DELIVERER left message with Dr. Patterson's nurse about above plan. Awaiting return phone call. If COOLER DELIVERER does not hear from Dr. Patterson anticipate she will be here in the morning to write orders. P: [facility] tomorrow at 1pm. RN given number to call nursing report. BURT Sarmiento
--- NOTE | 2022-12-04 14:03 | SLP.IPNOTE ---
Attempted to see pt for cognitive assessment and swallow screen at 13:50. Pt was working with PT and was unavailable.
--- NOTE | 2022-12-04 15:52 | CM.DPC ---
DCP: Dr. Patterson returned phone call regarding current acute rehab plan for patient. Dr. Whiting approved plan and will be here in am to write discharge orders. Family is aware of plan. P: Acute rehab in [facility] tomorrow at 1pm. CMT will continue to assist as needed. BURT Sarmiento
[2022-12-04 18:47] VITALS: BP 166/59; PULSE 93; RESP 17; TEMP 36.7; O2SAT 98
[2022-12-04 19:00] VITALS: BP 153/73; PULSE 97; RESP 18; TEMP 36.8; O2SAT 98
[2022-12-04] MEDS: ATORVASTATIN 20 MG TABLET 10 MG PO (20:41)
[2022-12-05] VITALS: BP 167/63; PULSE 87; RESP 18; TEMP 36.6; O2SAT 98
[2022-12-05] MEDS: SODIUM CHLORIDE 0.9% 1,000 ML 75 ML IV (00:03)
[2022-12-05 03:36] VITALS: BP 162/56; PULSE 82; RESP 16; TEMP 37; O2SAT 96
[2022-12-05 05:33] LABS: Add Manual Diff / Slide Review NO; Basophils Absolute Auto 0 /uL (0-100); Basophils Percent Auto 0.5 % (0-2); Eosinophils Absolute Auto 100 /uL (0-450); Eosinophils Percent Auto 2.1 % (2-4); Hematocrit 33.4 % (36-46); Hemoglobin 11.3 g/dL (12.0-16.0); Lymphocytes Absolute Auto 800 /uL (1100-4500); Lymphocytes Percent Auto 14.3 % (25-40); Mean Corpuscular HGB Conc 33.9 % (30-36); Mean Corpuscular Hemoglobin 30.1 PG (26-34); Mean Corpuscular Volume 88.9 fL (80-100); Monocytes Absolute Auto 600 /uL (0-900); Neutrophils Absolute Auto 4000 /uL (1500-7000); Neutrophils Percent Auto 73.1 % (50-75); Platelet Count 204 X10^3/uL (150-400); Red Blood Cell Count 3.76 X10^6/uL (4.0-5.2); Red Cell Distribution Width 12.6 % (11.6-14.8); White Blood Cell Count 5.5 X10^3/uL (4.5-11.0)
[2022-12-05 08:39] VITALS: BP 153/65; PULSE 92; RESP 17; TEMP 36.7; O2SAT 96
--- NOTE | 2022-12-05 08:40 | PT.IPTN ---
Current Diagnoses Cerebral infarction, unspecified (12/03/22) Physical Therapy Treatment Note M2 PT-IP Current Condition Start: 12/04/22 08:51 Freq: NEEDED Status: Active Protocol: Document 12/04/22 09:50 AW (Rec: 12/04/22 10:57 AW [id number]) Physical Therapy Current Condition Current Condition Evaluation Date 12/04/22 Treatment Diagnosis CVA (R MAGAZINE HAND); impaired vision, balance, and gait Onset Date 12/02/22 M3 PT-IP Subjective Start: 12/04/22 08:51 Freq: NEEDED Status: Active Protocol: Document 12/05/22 08:55 TS (Rec: 12/05/22 09:12 TS [id number]) Subjective Physical Therapy Visit Type Type Treatment Note Visit Start Time 08:40 Visit Stop Time 08:55 Total Visit Minutes 15 Number of PHLEBOTOMY TECHNOLOGIST Visits 2 Physical Therapy Visit Comments Patient Comments Pt found resting in chair, daughter in room, reports taking long walk around unit last night, agreeable to PT. Patient Goals To remain as independent as possible. M4 PT-IP Mobility and Gait Start: 12/04/22 08:51 Freq: NEEDED Status: Active Protocol: Document 12/05/22 08:55 TS (Rec: 12/05/22 09:12 TS [id number]) PT-Transfer Assessment Sit to and From Stand Sit to and from Stand Standby Assistance Equipment Transfer Assistive Device None,Gait Belt Orthotic/Prosthetic Devices or Brace: No Comments Mobility Comments Pt found resting in chair, agreeable to PT. Sit to stand no AD SBA BUE support on arms of chair. Ambulated ~500' in hallway SBA with FWW step thru gait with quick but safe pace . Stand to sit in chair SBA with no AD BUE suppor ton arms of chair, demonstrates good eccentric control. Pt was left in chair with call light nearby, daughter in room. Gait Assessment Gait Gait Assistance Required: Standby Assistance Distance (Feet) 500 Assistive Devices Assistive Device Gait Belt,Front Wheeled Walker Gait Deviations General Gait Pattern Narrow Based Gait Factors Limiting Gait Function Factors Limiting Gait Function Decreased Sensation, Incoordination,Poor Balance Comments Gait Comments See mobility comments. PT-Balance Assessment Sitting Balance and Reactions Static Sitting Balance Ability Normal Dynamic Sitting Balance Ability Good Standing Balance and Reactions Static Standing Balance Ability Good Dynamic Standing Balance Ability Good M5 PT-IP Objective Assessments Start: 12/04/22 08:51 Freq: NEEDED Status: Active Protocol: Document 12/04/22 09:50 AW (Rec: 12/04/22 11:27 AW [id number]) Orientation Orientation/Cognition Level of Alertness Alert Orientation Name,Day of Week,Place, Situation Language Function Ability No Deficits Noted Safety Awareness Understands Safety Issues Memory Description No Deficits Noted Gross Range of Motion Upper Extremity ROM Assessment Within Functional Limits Lower Extremity ROM Assessment Within Functional Limits Strength Upper Extremity Strength Assessment Within Functional Limits Lower Extremity Strength Assessment Within Functional Limits Hip flexion 4+/5 Knee grossly 5/5 Ankle 5/5 DF Comments Strength Comments No unilateral deficit on LE strength. Coordination Assessment Assessment Finger to Nose Test Minimal Impairment Pronation/Supination Test Normal Performance Foot Tapping Test Normal Performance Heel on Raines Test Normal Performance Coordination Comments Missed targets ~1 cm with LUE during finger to nose. Sensation Assessment Sensation Gross Sensation Right LE Impaired,Left LE Impaired Light Touch Impaired Proprioception (Position) Impaired Comments Sensation Comments Pt has chronic peripheral neuropathy affecting BLE but right side is typically more affected. Proprioception deficits appear to be new. 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 Ocular motor screen was affected as pt would lose track of the target as it moved from right toward the left. Saccades were WNL to the right but impaired to the left. No phoria was observed. 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 M6 PT-IP Treatment Start: 12/04/22 08:51 Freq: NEEDED Status: Active Protocol: Document 12/05/22 08:55 TS (Rec: 12/05/22 09:12 TS [id number]) Physical Therapy Treatment Education Education Provided Safety M7 PT-IP Assessment and Plan Start: 12/04/22 08:51 Freq: NEEDED Status: Active Protocol: Document 12/05/22 08:55 TS (Rec: 12/05/22 09:12 TS [id number]) PT Summary Assessment and Plan Potential Rehabilitation Potential Good Status of Condition at Evaluation Stable Summary Impairments Balance,Coordination,Transfers ,Gait Assessment Summary Pt progressed ambulation to ~ 500' in hallway SBA with FWW. She demonstrates quicker pace with a normal gait, increased activity tolerance and good navigational skills around objects in hallway. Sit to stand with no AD SBA, some unsteadiness standing with no AD. PT continues to recommend acute rehab to progress balance and functional mobility. Goals Bed Mobility Goal Independent Transfer Goal Independent,Front Wheeled Walker Gait Goal Independent,Front Wheel Walker Gait Distance 400 Other Goals - Up/down 2 steps with single rail and modified independence - Improve transfers and gait to mod I with LRAD - Pt to score 19/24 on Dynamic Gait to demonstrate decreased falls risk Days to Meet Goals 10 Frequency of Treatment Frequency Of Treatment Twice a Day Treatment Plan Physical Therapy Treatment Plan Transfer Training,Gait Training,Therapeutic Exercise, Balance Retraining,Discharge Planning,Neuromuscular Re-ed, Coordination Retraining Precautions Other Precautions falls risk Recommendations To Nursing Amount of Assist Needed Standby Assistance Discharge Recommendations PT Discharge Recommendations Acute Rehab Transportation Needs at Discharge Private Vehicle
[2022-12-05] MEDS: ASPIRIN 81 MG CHEW TAB PO (09:29)
[2022-12-05] MEDS: ENOXAPARIN 40 MG/0.4 ML SYRINGE SUBCUT (09:29)
--- NOTE | 2022-12-05 09:49 | PM.DS.1 ---
History of Present Illness History of Present Illness Date Patient Seen: 12/05/22 Chief complaint: GLF Narrative: This is a very pleasant 87-year-old female who is under the primary care of Dr. Patterson.? She was brought to the emergency department for evaluation of being unsteady and had a recent fall.? She lives alone here in [facility] and her son came up because he was concerned about her.? Paramedics were called on the 01 of December and recommended she go in to be evaluated but she declined.? It is possible they gave her something for her pain as she was having back pain and said she had fallen.? She then consented to be evaluated and her son brought her into the ER for evaluation last night.? 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 It is thought that her symptoms started on .? [place] stroke team was consulted and felt that it was reasonable to admit her for further workup and monitoring however she did not meet criteria for aggressive treatment.? She consented to that. Really her only medical problems have been hypertension.? She is on amlodipine and enalapril and previously was on metoprolol but it is unclear why she is off that. She is a very poor historian Discharge Providers Provider Date of admission: 12/03/22 03:56 Discharge Date: 12/05/22 Primary care physician: Sarah Patterson MD Consults: 12/03/22 08:19 Consult to FOUNDATION DRILL OPERATOR HELPER - Library Customer Service Clerk Routine Comment: [facility] [place] Consult needed for:: Community Health Res Need 12/03/22 12:30 Consult to Discharge Planning Routine Comment: Consult to Occupational Therapy Evaluate & Treat Comment: Physician Instructions: Evaluate and treat Consult to Physical Therapy Evaluate & Treat Comment: Physician Instructions: Evaluate and Treat 12/04/22 09:14 Consult to Speech Therapy Evaluate & Treat Comment: Physician Instructions: Evaluate and treat Discharge provider: Sarah Patterson MD Summary Hospital Course Discharge Diagnosis: CVA Atrial fibrillation Hypertension Ground level fall Cognitive decline Hospital Course: The pt was admitted with ground level fall at home and CVA. She was not a candidate for TPA. 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 Echo was unrevealing. The pt was noted to be in atrial fibrillation at admission. She converted to sinus rhythm without intervention. The pts BP was initially lower, and her antihypertensives were held. Her BP kayla prior to discharge. She will be restarted on Enalapril at discharge, but her Amlodipine will still be held. The pt was started on a statin and aspirin. Anticoagulation was discussed, however due to fall risk it was determined to not be safe to intitiate. The pt was evaluated by PT/OT, who both felt acute rehab was appropriate. The pt was anxious to start doing more aggressive rehabilitation at discharge. Status at Discharge Cognitive/behavioral status at discharge: at baseline, confused Functional status at discharge: uses cane/walker Overall status at discharge: patient is progressing back to baseline Exam Vital Signs (past 8 hours): - 12/05/22 03:36 12/05/22 08:39 Temperature 98.6 F 98.1 F Pulse Rate 82 92 H Respiratory Rate 16 17 Blood Pressure 162/56 H 153/65 H Pulse Oximetry 96 96 Oxygen Flow Rate 0 0 Oxygen Delivery Method Room Air Oxygen Flow Rate 0 Narrative Exam Narrative: Gen:? NAD, sitting comfortably in bed, appears well CV:? irregularly irregular rhythm, normal rate, grade 2/6 systolic murmur Resp:? clear to auscultation bilaterally Abd:? soft, nontender, nondistended Ext:? on edema Neuro:? oriented to person, place but not time; 5/5 strength UE and LE, no pronator drift Objective Labs 12/05/22 04:43 12/04/22 05:18 Labs: Laboratory Results - last 24 hr 12/05/22 04:43 WBC 5.5 RBC 3.76 L Hgb 11.3 L Hct 33.4 L MCV 88.9 MCH 30.1 MCHC 33.9 RDW 12.6 Plt Count 204 Neut % (Auto) 73.1 Lymph % (Auto) 14.3 L [place] % (Auto) 10.0 Eos % (Auto) 2.1 Baso % (Auto) 0.5 Neut # (Auto) 4000 Lymph # (Auto) 800 L [place] # (Auto) 600 Eos # (Auto) 100 Baso # (Auto) 0 PFSH Medical History Atrial tachycardia Cataract Chicken pox Hearing loss Hypertension (1988) Measles Mumps Surgical History No history of previous surgery (08/2014) Family History Child Age: 59 Hypertension Sister Age: 84 Hypertension Cancer Father Lung disease Heart disease Mother Atrial fibrillation Social History marital status: number of children: 2 household members: none lives independently: Yes caregiver/support person: No housing: house pets and animals: No education level: college occupational status: previously employed special payal needs: No leisure activities: sports, exercise, music and reading seatbelt use: always helmet use: Yes water heater temp set < 120 deg: Yes working smoke detector in home: Yes fire extinguisher in home: No carbon monox detector in home: No firearms in home: Yes (unloaded but not locked up) firearms unloaded and locked: No do you feel safe at home: Yes Smoking Status: Never smoker second hand exposure: No alcohol intake: current substance use type: does not use Type(s) of exercise: walking, regular exercise and yoga frequency: daily duration: 30-45 minutes/day Discharge Plan Discharge Plan Patient Disposition: [facility] Other facility: [facility] Discharge orders & Medications Discharge Orders: Discharge (Order); Ordered 12/05/22 Ordered By: Sarah Patterson Prescriptions: New aspirin 81 mg Tablet,Chewable 81 mg PO DAILY Qty: 30 0RF atorvastatin [Lipitor] 20 mg Tablet 10 mg PO BEDTIME Qty: 30 0RF Continued multivitamin Tablet 1 tab PO DAILY Qty: 0 enalapril maleate 20 mg tablet See Rx Instructions .ROUTE .COMPLEX Qty: 90 5RF Dose Instruction: TAKE 1 TABLET BY MOUTH EVERY DAY Rx Instructions: TAKE 1 TABLET BY MOUTH EVERY DAY Discontinued amlodipine 5 mg tablet See Rx Instructions .ROUTE .COMPLEX Qty: 90 3RF Dose Instruction: TAKE 1 TABLET BY MOUTH DAILY Rx Instructions: TAKE 1 TABLET BY MOUTH DAILY Follow up/Referrals: Sarah Patterson MD [Primary Care Provider] - 1 Month Diet/Activity/Treatments Diet: Diet as Tolerated and Regular Liquid consistency: Normal/Thin Food texture: Regular Special Rehabilitation Services Reason for rehabilitation: Therapy following stroke Rehab type: Physical therapy, Occupational therapy and Speech therapy Visit Report/Discharge Packet Instructions: DI for Stroke-Ischemic Discharge Data Primary Care Provider: Sarah Patterson VTE Deep Vein Thrombosis/Pulmonary Embolism Present on Admission: No
--- NOTE | 2022-12-05 11:57 | OT.IP.TRT ---
Current Diagnoses Cerebral infarction, unspecified (12/03/22) Occupational Therapy Treatment Note M2 OT-IP Current Condition Start: 12/04/22 11:25 Freq: Status: Active Protocol: Document 12/04/22 11:25 CGR (Rec: 12/04/22 11:47 CGR [id number]) Occupational Therapy Current Condition Current Condition Evaluation Date 12/04/22 Treatment Diagnosis recent fall, posterior cerebral artery occuluaion Diagnosis Onset Date 12/03/22 M3 OT- IP Subjective and Pain Start: 12/04/22 11:25 Freq: Status: Active Protocol: Document 12/05/22 11:21 [facility] (Rec: 12/05/22 12:18 [facility] [id number]) OT- Subjective Occupational Therapy Visit Type Type Treatment Note Visit Start Time 11:21 Visit Stop Time 11:57 Total Visit Minutes 36 Occupational Therapy Visit Comments Patient Comments Pt agreed to do [place] Patient/Caregiver Goals To get better. OT Pain Assessment Pain When Pain Assessed At Rest Pain Present Pain Present Denied Pain M4 OT- IP ADL's Start: 12/04/22 11:25 Freq: Status: Active Protocol: Document 12/04/22 11:25 CGR (Rec: 12/04/22 11:47 CGR [id number]) OT [id number] Comments OT Self-Feeding Comments not meal time OT ADL-Grooming General Evaluation Grooming Ability Standby Assistance Areas Needing Assistance Retrieving/Set-up of Grooming Items,Face Washing Comments OT Grooming Comments standing at sink OT ADL-Oral Care General Eval Oral Care Ability Standby Assistance Areas of Assistance Brushing Teeth,Retrieving/Set- Up of Items Comments Oral Care Comments standing at sink OT ADL-Dressing General Eval Lower Body Dressing Ability Independent Areas Needing Assistance Socks Comments OT Dressing Comments seated EOB OT ADL-Toileting General Evaluation Toileting Ability Independent Comments OT Toileting Comments simulated seated on toilet OT ADL-Bathing Comments OT Bathing Comments Just performed with nursing. M5 OT- IP IADL's Start: 12/04/22 11:25 Freq: Status: Active Protocol: Document 12/04/22 11:25 CGR (Rec: 12/04/22 11:47 CGR [id number]) OT-Instrumental Activities of Daily Living Deficits IADL Deficits Identified Deficits Home Safety Awareness Awareness of Need for Assistance at Home Decreased Awareness Ability to Problem Solve Emergency Unable to Problem Solve Situations Medication Management Medication Management Comments Concerns regarding pt's ability to manage IND at this time Money Management Money Management Comments Concerns regarding pt's ability to manage IND at this time Meal Preparation Meal Preparation Comments Concerns regarding pt's ability to manage IND at this time 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 M6 OT- IP Functional Cognition Start: 12/04/22 11:25 Freq: Status: Active Protocol: Document 12/05/22 11:21 CCC (Rec: 12/05/22 12:18 [facility] [id number]) Cognitive Factors Limiting Selfcare Function Cognitive Ability Level of Alertness Alert Patient Orientation Name,Place,Situation Attention Span Ability Capable of Focused Attention, Capable of Sustained Attention Ability to Follow Commands Able to Follow One Step Commands Cognitive Comments Cognitive Assessment Comments Pt able to follow directions for [place]. Pt having difficulty to find numbers and letters especially on the left. Pt scored 359 seconds and reminders to turn her head to the left and make sure look all the way to the edge of the paper when scanning. Pt 's score implies severe impairment with visual attention, speed of processing , mental flexibility, executive functioning, and task switching. Pt's decreased vision definitely is affecting her time for the assessment. OT- Vision and Hearing OT- Vision Assessment Vision Assessment Comments Pt decreased left vision on the right eye, and left eye seems to be able to see better on the left side today. M7 OT- IP Mobility and Balance Start: 12/04/22 11:25 Freq: Status: Active Protocol: Document 12/04/22 11:25 CGR (Rec: 12/04/22 11:47 CGR [id number]) OT- Bed Mobility Assessment Supine to Sit Supine to Sit Assist Standby Assistance Scooting Scooting to Edge of Bed Standby Assistance OT-Transfer Assessment Sit to and From Stand Sit to and from Stand Standby Assistance Transfers Transfer Ability Standby Assistance Technique Transfer Destination Bed,Chair,Toilet Transfer Technique Stand Step Pivot Devices Transfer Assistive Devices Gait Belt,Front Wheeled Walker Comments Mobility Comments Pt ambulated around the room with FWW and SBA. Pt needs vc for safety at times with the use of the walker. OT- Gait Assessment Comments Gait Ability Comments see P.T. note for more detailed information. OT- Balance Assessment Sitting Balance and Reactions Static Sitting Balance Ability Good Dynamic Sitting Balance Ability Good M8 OT- IP Objective Assessments Start: 12/04/22 11:25 Freq: Status: Active Protocol: Document 12/04/22 11:25 CGR (Rec: 12/04/22 11:47 CGR [id number]) OT Gross Range of Motion Upper Extremity Range of Motion Assessment Within Functional Limits OT Strength Upper Extremity Strength Assessment Within Functional Limits Comments Strength Comments Of note, pt states her back hurt when testing shlds. Grossly 4-/5 throughout OT- Coordination Assessment Upper Extremity Finger to Nose Test Within Functional Limits Finger Tapping Test Within Functional Limits OT-Muscle Tone Assessment Muscle Tone WNL Yes OT Sensation Assessment Edema Edema Absent M9 OT- IP Assessment and Plan Start: 12/04/22 11:25 Freq: Status: Active Protocol: Document 12/05/22 11:21 CCC (Rec: 12/05/22 12:18 CCC [id number]) OT Summary Assessment and Plan Potential Rehabilitation Potential Excellent Analytic Complexity at Evaluation Moderate Summary OT Impairments Pain,Strength,Balance, Functional Cognition, Functional Mobility,Bathing, Toilet Transfers,Shower Transfers,Activity Tolerance Progress Towards Goals Progressing Toward Goals Assessment Summary Pt is very motivated and able to follow directions and looking to go acute rehab today. Goals Dressing Goal Independent Toileting Goal Independent Bathing Goal Independent Toilet Transfer Goal Independent OT-Other Goals Pt will demonstrate visual scanning to visualize her surroundings 90% of the time with mobility and ADLs. Days to Meet Goals 19 Frequency of Treatment Frequency Of Treatment Once a Day Treatment Plan OT Treatment Plan ADL Training,Functional Cognition Training,Functional Mobility,Vision Retraining, Patient/Family Education, Discharge Planning Other Treatment Recommendations and Next vision scanning assessment, Treatment Focus visual training. Discharge Recommendations OT Discharge Recommendations Acute Rehab Transportation Needs at Discharge Private Vehicle
--- NOTE | 2022-12-05 14:33 | PC.NURSE ---
Discharge Note Patient A&O, VSS, RA, no complaints of pain/discomfort. Patient agreeable to discharge plan. Discharge packet reviewed with patient, questions/concerns addressed. PIV/TELE discontinued. Patient able to dress self with assistance, all belongings packed by family. Patient taken by transport team, packet given to transport.
--- NOTE | 2022-12-05 16:54 | ST.IPIE ---
Visit Care Team Role Provider Type Moustapha Pennington DO Emergency Provider Physician Referring Provider Specialty: Emergency Medicine Address: [address] [place] [address], [id number] Email: [email or web address] Sarah Patterson MD Attending Provider Physician Primary Care Provider Specialty: Family Practice Address: [address] [place] [address], [address], [place], [address] Email: [email or web address] Sharon Carlin MD Admit Provider Physician Other Providers Specialty: Family Practice Address: [address] [place] [address], [address], [place], [address] Email: [email or web address] Current Diagnoses Cerebral infarction, unspecified (12/03/22) Past Medical History (Last Reviewed 12/03/22 @ 12:31 by Sharon Carlin MD) Atrial tachycardia (Medical) Cataract (Medical) Chicken pox (Medical) Hearing loss (Medical) considering hearing aids 2015 Hypertension (Medical 1988) Measles (Medical) Mumps (Medical) ST IP Initial Evaluation Report [facility] [facility] Adult Cognitive Linguistic Eval Start: 12/05/22 12:21 Freq: Status: Discharge Protocol: Document 12/05/22 12:22 BE (Rec: 12/05/22 12:45 BE [id number]) Adult Cognitive Linguistic Evaluation Session Time Visit Start Time 12:05 Visit Stop Time 12:20 Total Visit Minutes 15 Setting Assessment Location Acute Care Visit Type Note Type Initial evaluation Next Note Type Next Note Type Discharge Summary Patient Information Identification Type Name,Wristband Patient History Per hospitalist, This is a very pleasant 87-year-old female who is under the primary care of Dr. Patterson. She was brought to the emergency department for evaluation of being unsteady and had a recent fall. She lives alone here in [facility] and her son came up because he was concerned about her. Paramedics were called on the 01 of December and recommended she go in to be evaluated but she declined. It is possible they gave her something for her pain as she was having back pain and said she had fallen. She then consented to be evaluated and her son brought her into the ER for evaluation last night. 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 It is thought that her symptoms started on . [facility] stroke team was consulted and felt that it was reasonable to admit her for further workup and monitoring however she did not meet criteria for aggressive treatment. She consented to that. Pt referred to ST following CVA due to concerns for cognitive linguistic impairments. Subjective Patient Report Pt was sitting upright in chair upon ST entry, and consented to participate in cognitive screening. Pt reported having memory deficits as her current baseline. She stated that she has had no difficulty with swallowing. Mental Status Alert,Responsive,Cooperative Informal Assessment Receptive Language Normal Yes Expressive Language Normal Yes Pragmatic Language Normal Yes Speech Normal Yes Cognition Normal No Cognitive Impairment(s) Orientation,Short-term memory, Executive functioning Formal Assessment Standardized Test/Screener Type [facility] Mental Status (UMS) Administration Complete Results Pt scored 16/30. Normative data from [facility] state that scores below 20 indicate potential dementia. Pt is s/p CVA. Pt completed SLUMS yesterday with OT with a score of 18/30. Findings/Results Language Function Within normal limits Cognitive Function Moderately impaired Findings Pt demonstrated strengths with numeric calculation and registration, and immediate recall with time constraint. She demonstrated challenges with orientation, digit span, and delayed recall with interference. She had varying performance with executive function and visual spatial attention. OT reported pt challenge with left visual field, noted especially during trailmaking test. Error in clock drawing task of UMS also indicated left visual field inattention. Pt's cognitive level post CVA is indicative of moderate deficits. Expressive and receptive language ability is WNL. Pt is discharging. Recommend ST follow up with patient in acute rehab. Cognitive Communication Deficits Self-awareness of Cognitive- Predictive awareness (able to Communication Deficits predict problem; impact of impairments) Impact on Functioning Activity Limits/Particip.Rest. Mod: General Tasks and Demands Household Tasks Interpersonal Interactions Community Comment Pt's memory, attention, and executive functioning are challenges Safety Risks Mild: Managing Medication Comment Pt's memory and attention could be cause for missed medication Prognosis Prognosis Fair Based on Cognitive status,Family support Comment Pt is post CVA. Cognitive status likely to improve some over coming time Plan of Care Patient/Caregiver Education Described results of evaluation,Patient expressed understanding of evaluation, Family/caregivers expressed understanding of evaluation Discharge Recommendations Inpatient rehab facility [facility] Clinical Instructor Line Start: 12/05/22 12:21 Freq: Status: Discharge Protocol: Document 12/05/22 12:22 BE (Rec: 12/05/22 12:45 BE [id number]) Clinical Instructor Signature Clinical Instructor Clinical Instructor Yes
== END 2022-12-05 13:15 | DRG 66 ==
LOC: ED 03:21 → AC 03:56
PROVIDERS: Emergency Medicine; Admitting Provider Family Medicine; Emergency Provider Emergency Medicine; PCP Family Medicine; Referring Provider Emergency Medicine; Visit Provider Family Medicine
DX: I63.9 Cerebral infarction, unspecified (principal); I48.91 Unspecified atrial fibrillation; I10 Essential (primary) hypertension; R29.703 NIHSS score 3; R29.705 NIHSS score 5; R41.81 Age-related cognitive decline; W18.30XA Fall on same level, unspecified, initial encounter; Z20.822 Contact with and (suspected) exposure to COVID-19; Z66 Do not resuscitate
CPT/HCPCS: 36415; 70450; 70548; 70553; 71260; 72125; 74177; 80053; 80061; 80305; 80320; 81003; 83605; 83690; 85025; 85610; 85730; 87635; 92523; 93005; 93306; 97116; 97129; 97162; 97166; 97530; 97535; 99285; 99291; C9803; A9579; J1650; Q9967